=== PATIENT | male | born 1955 | race Caucasian/White ===

== ENCOUNTER → 2017-12-18 06:54 | Outpatient (CLI) | payer BC, SELFPAY ==
[2017-12-18 09:16] LABS: Anion Gap 12.2 mEq/L (5-15); Blood Urea Nitrogen 20 mg/dL (7-18); Carbon Dioxide 29 mmol/L (21.0-32.0); Chloride 109 mmol/L (98-107); Chol/HDL Ratio 2.8 (1-3.5); Cholesterol 86 mg/dL (140-200); Creatinine,Serum 1.05 mg/dL (0.70-1.30); Estimated Glomerular Filt Rate 72 ml/min (>60); GFR (African American) 87 ML/MIN (>60); Glucose 106 mg/dL (74-106); HDL Cholesterol 31 mg/dL (27-67); LDL Cholesterol 38 mg/dL (0-130); Potassium 4.2 mmoL/L (3.5-5.1); Sodium 146 mmol/L (136-145); Triglycerides 85 mg/dL (30-200); VLDL Cholesterol 17 mg/dL (0-40)
== END ==
PROVIDERS: PCP Family Medicine; Visit Provider Family Medicine
DX: I25.10 Atherosclerotic heart disease of native coronary artery without angina pectoris (principal); I10 Essential (primary) hypertension
CPT/HCPCS: 36415; 80048; 80061

== ENCOUNTER → 2018-05-07 07:30 | Outpatient (CLI) | payer BC, SELFPAY ==
[2018-05-07 08:11] LABS: Basophils # 0.1 K/mm3 (0-0.2); Basophils % 0.6 % (0.1-2.0); Eosinophils # 0.4 K/mm3 (0.0-0.4); Eosinophils % 4.3 % (0.1-12.0); Hematocrit 45.5 % (42.0-52.0); Lymphocytes # 2.9 K/mm3 (0.7-4.5); Lymphocytes % 33.8 % (10-50); Mean Corpuscular HGB Conc 32.9 g/dL (31.8-35.4); Mean Corpuscular Hemoglobin 31.1 pg (27.0-31.2); Mean Corpuscular Volume 94.8 fl (80-94); Mean Platelet Volume 7.6 fl (7.4-10.4); Monocytes # 0.5 K/mm3 (0.1-1.0); Monocytes % 5.4 % (1.7-9.3); Neutrophils # 4.8 K/mm3 (1.8-7.8); Neutrophils % 55.8 % (37.0-80.0); Platelet Count 316 K/mm3 (142-424); Red Cell Distribution Width 13.1 % (11.5-17.5); White Blood Count 8.6 K/mm3 (4.8-10.8)
[2018-05-07 08:46] LABS: Alanine Aminotransferase 34 U/L (12-78); Albumin Level 3.5 gm/dL (3.4-5.0); Alkaline Phosphatase 102 U/L (46-116); Anion Gap 9.1 mEq/L (5-15); Aspartate Amino Transferase 30 U/L (15-37); Bilirubin,Direct 0.1 mg/dL (0.0-0.2); Bilirubin,Indirect 0.3 mg/dL (0.0-0.9); Bilirubin,Total 0.4 mg/dL (0.2-1.0); Blood Urea Nitrogen 12 mg/dL (7-18); Calcium 9.2 mg/dL (8.5-10.1); Carbon Dioxide 32 mmol/L (21.0-32.0); Chloride 107 mmol/L (98-107); Chol/HDL Ratio 2.7 (1-3.5); Cholesterol 106 mg/dL (140-200); Creatinine,Serum 1.05 mg/dL (0.70-1.30); Estimated Glomerular Filt Rate 72 ml/min (>60); Free T4 (Free Thyroxine) 0.88 ng/dl (0.76-1.46); GFR (African American) 87 ML/MIN (>60); Glucose 102 mg/dL (74-106); HDL Cholesterol 39 mg/dL (27-67); LDL Cholesterol 51 mg/dL (0-130); Potassium 4.1 mmoL/L (3.5-5.1); Sodium 144 mmol/L (136-145); Thyroid Stimulating Hormone 2.85 uIU/ml (0.358-3.740); Total Protein,Serum 6.4 gm/dL (6.4-8.2); Triglycerides 79 mg/dL (30-200); VLDL Cholesterol 16 mg/dL (0-40)
== END ==
PROVIDERS: Visit Provider Family Medicine
DX: I25.10 Atherosclerotic heart disease of native coronary artery without angina pectoris (principal); I10 Essential (primary) hypertension; R63.4 Abnormal weight loss
CPT/HCPCS: 36415; 80048; 80061; 80076; 84439; 84443; 85025

== ENCOUNTER → 2018-05-15 07:39 | Outpatient (CLI) | payer BC, SELFPAY ==
--- NOTE | 2018-05-15 07:43 | CT_ITS ---
CT lung screening EXAM: CT LUNG LOW DOSE WO CONTRAST HISTORY: 30 pack-year smoking history, asymptomatic for lung cancer ITS.REASON: HX TOBACCO USE ORDERING PHYSICIAN: Eriberto Burnett MD PATIENT AGE: 62 years COMPARISON: None TECHNIQUE: The exam was performed on a GE Light Speed [address] scanner using 2.90 mGy CTDI. A low dose helical CT CHEST was performed on a multi-detector scanner. All CT scans at the facility use one or more dose reduction, viz: automated exposure control, ma/kV adjustment per patient size (including targeted exams where dose is matched to indication, i.e. head), or iterative reconstruction technique. The LDCT was performed in a facility that meets the criteria for the screening program. Data regarding this exam was submitted to ACR which is an approved registry. The order for this exam indicates that it came as a result of a lung cancer screening counseling shard decision-making visit that included all the elements required of such a visit including smoking cessation. The radiologist interpreting this exam meets the CMS criteria for the LDCT lung cancer screening program. The exam is reported using the Lung-RADS classification scale and reported to the ACR registry. NOTE: This study was performed for the specific purposes of lung cancer screening and is not an alternative to diagnostic chest CT. RADIATION DOSE: CTDI vol(CT dose Index-volume) = 2.90mG DLP (Dose Length Product) = 114.11 mGcm FINDINGS: There is hyperinflation with attenuation of the peripheral pulmonary vessels consistent with obstructive chronic bronchitis with scattered areas of scarring. No central lesions. No suspicious pulmonary nodules. Calcified granuloma is present in the right middle lobe medially Incidental coronary artery calcifications are noted IMPRESSION: 1. Lung RADS Category: 2, benign 2. Other findings: COPD, coronary artery calcifications RECOMMENDATIONS: 12 month LDCT follow-up
== END ==
PROVIDERS: PCP Family Medicine; Visit Provider Family Medicine
DX: Z12.2 Encounter for screening for malignant neoplasm of respiratory organs (principal); Z87.891 Personal history of nicotine dependence

== ENCOUNTER → 2019-04-29 14:10 | Outpatient (CLI) | payer BC, SELFPAY ==
[2019-04-29 14:45] LABS: Basophils % 0.2 % (0.1-2.0); Eosinophils # 0.2 K/mm3 (0.0-0.4); Eosinophils % 1.9 % (0.1-12.0); Hemoglobin 13.9 g/dL (14.1-18.0); Lymphocytes # 1.9 K/mm3 (0.7-4.5); Lymphocytes % 18.9 % (10-50); Mean Corpuscular HGB Conc 33.2 g/dL (31.8-35.4); Mean Corpuscular Hemoglobin 31.5 pg (27.0-31.2); Mean Platelet Volume 8.1 fl (7.4-10.4); Monocytes # 0.6 K/mm3 (0.1-1.0); Neutrophils # 7.4 K/mm3 (1.8-7.8); Neutrophils % 72.9 % (37.0-80.0); Platelet Count 284 K/mm3 (142-424); Red Blood Count 4.42 M/mm3 (4.60-6.20); Red Cell Distribution Width 13.2 % (11.5-17.5); White Blood Count 10.1 K/mm3 (4.8-10.8)
[2019-04-29 16:43] LABS: Chloride 105 mmol/L (98-107); Potassium 4.3 mmoL/L (3.5-5.1); Sodium 141 mmol/L (136-145)
[2019-04-29 16:45] LABS: Blood Urea Nitrogen 12 mg/dl (9-20); Estimated Glomerular Filt Rate 75 ml/min (>60); GFR (African American) 91 ML/MIN (>60)
[2019-04-29 16:46] LABS: Anion Gap 11.3 mEq/L (5-15); Calcium 9.6 mg/dl (8.4-10.2); Carbon Dioxide 29 mmol/L (22.0-30.0); Chol/HDL Ratio 2.4 (1-3.5); Cholesterol 83 mg/dl (140-200); Glucose 80 mg/dl (74-100); HDL Cholesterol 34 mg/dl (40-60); Iron 46 ug/dL (49-181); Triglycerides 60 mg/dl (30-150); VLDL Cholesterol 12 mg/dL (0-40)
[2019-04-29 16:57] LABS: Direct LDL Cholesterol 39.02 mg/dL (100-129)
== END ==
PROVIDERS: Visit Provider Family Medicine
DX: I25.10 Atherosclerotic heart disease of native coronary artery without angina pectoris (principal); I10 Essential (primary) hypertension; R53.83 Other fatigue
CPT/HCPCS: 36415; 80048; 80061; 83540; 85025

== ENCOUNTER → 2020-07-13 11:46 | Outpatient (CLI) | payer BC, SELFPAY ==
[2020-07-13 12:20] LABS: Basophils % 0.5 % (0.1-2.0); Eosinophils # 0.3 K/mm3 (0.0-0.4); Eosinophils % 2.7 % (0.1-12.0); Hematocrit 44.7 % (42.0-52.0); Hemoglobin 14.9 g/dL (14.1-18.0); Lymphocytes # 2.5 K/mm3 (0.7-4.5); Lymphocytes % 25.9 % (10-50); Mean Corpuscular HGB Conc 33.3 g/dL (31.8-35.4); Mean Corpuscular Hemoglobin 31.4 pg (27.0-31.2); Mean Corpuscular Volume 94.3 fl (80-94); Mean Platelet Volume 8.1 fl (7.4-10.4); Monocytes # 0.4 K/mm3 (0.1-1.0); Monocytes % 4.3 % (1.7-9.3); Neutrophils # 6.5 K/mm3 (1.8-7.8); Neutrophils % 66.7 % (37.0-80.0); Platelet Count 333 K/mm3 (142-424); Red Blood Count 4.74 M/mm3 (4.60-6.20); Red Cell Distribution Width 13.7 % (11.5-17.5); White Blood Count 9.7 K/mm3 (4.8-10.8)
[2020-07-13 12:32] LABS: Chloride 109 mmol/L (98-107); Sodium 140 mmol/L (136-145)
[2020-07-13 12:33] LABS: Potassium 4.1 mmoL/L (3.5-5.1)
[2020-07-13 12:35] LABS: Anion Gap 10.1 mEq/L (5-15); Blood Urea Nitrogen 14 mg/dl (9-20); Carbon Dioxide 25 mmol/L (22.0-30.0); Estimated Glomerular Filt Rate 85 ml/min (>60); GFR (African American) 102 ML/MIN (>60)
[2020-07-13 12:36] LABS: Calcium 9.7 mg/dl (8.4-10.2); Cholesterol 99 mg/dl (140-200); Glucose 113 mg/dl (74-100); HDL Cholesterol 35 mg/dl (40-60); Triglycerides 61 mg/dl (30-150); VLDL Cholesterol 12 mg/dL (0-40)
[2020-07-13 12:41] LABS: Chol/HDL Ratio 2.8 (1-3.5)
[2020-07-13 12:47] LABS: Direct LDL Cholesterol 49.77 mg/dL (100-129)
== END ==
PROVIDERS: Visit Provider Family Medicine
DX: I25.10 Atherosclerotic heart disease of native coronary artery without angina pectoris (principal); I10 Essential (primary) hypertension; R53.83 Other fatigue
CPT/HCPCS: 36415; 80048; 80061; 85025

== ENCOUNTER → 2020-11-04 12:42 | Outpatient (CLI) | payer OTHER, BC, SELFPAY ==
--- NOTE | 2020-11-04 12:50 | XR_ITS ---
PROCEDURE: XR SHOULDER LT MIN 2V CLINICAL INDICATION: LT SHOULDER INJURY,DECREASED ROM COMPARISON: No exams were available for comparison FINDINGS: No fracture or dislocation. No lytic or blastic change. There is normal mineralization. The joint spaces are well-preserved. No significant degenerative/arthritic changes. No erosive changes evident. Other findings:None. IMPRESSION: No acute findings. Dictated by: Pardeep Jackson MD 11/04/2020 13:02 Pardeep Jackson MD in [place] 11/04/2020 13:02
== END ==
PROVIDERS: PCP Family Medicine; Visit Provider Nurse Practitioner Family
DX: S49.92XA Unspecified injury of left shoulder and upper arm, initial encounter (principal); M25.612 Stiffness of left shoulder, not elsewhere classified
CPT/HCPCS: 73030

== ENCOUNTER → 2020-11-12 14:55 | Outpatient (CLI) | payer OTHER, SELFPAY ==
--- NOTE | 2020-11-12 15:02 | MR_ITS ---
PROCEDURE: MR SHOULDER LT WO CON CLINICAL INDICATION: DECREASED ROM OF LEFT COMPARISON: CR XR SHOULDER LT MIN 2V from 11/04/2020 TECHNIQUE: Routine multiplanar multi echo sequences are performed without gadolinium enhancement. FINDINGS: Hypertrophic changes are present involving the acromioclavicular joint with osteoarthritic change of the acromioclavicular joint. There is mild subacromial stenosis of 5 mm. There is mildly prominent thickening the supraspinatus tendon distally consistent with tendinopathy/tendinosis with an incomplete tear involving the supraspinatus tendon at its insertion upon the greater tuberosity. The infraspinatus, subscapularis, and teres minor tendons appear intact. There does appear to be a nondisplaced slap tear of the glenoid labrum. Increased T2 signal is present involving the humeral head laterally and at the greater tuberosity region as well as the central physis. The bicipital tendon is in place. Small amount fluid is present in the subcoracoid region. IMPRESSION: 1. Incomplete tear of the distal aspect of the supraspinatus tendon with tendinopathy/tendinosis of the supraspinatus tendon with mild subacromial stenosis and hypertrophic/arthritic change of the acromioclavicular joint. 2. Slap tear of the glenoid labrum 3. Bone marrow edema of the humeral head and physeal area and greater tuberosity which may be due to posttraumatic or inflammatory change. Dictated by: Pardeep Jackson MD 11/15/2020 14:32 Pardeep Jackson MD in [place] 11/15/2020 14:32
== END ==
PROVIDERS: PCP Nurse Practitioner Family; Visit Provider Nurse Practitioner Family
DX: S49.92XA Unspecified injury of left shoulder and upper arm, initial encounter (principal); M25.612 Stiffness of left shoulder, not elsewhere classified
CPT/HCPCS: 73221

== ENCOUNTER → 2021-01-30 14:02 | Outpatient (CLI) | payer BC, SELFPAY | PROVIDERS: PCP Family Medicine; Visit Provider Nurse Practitioner Family | DX: Z20.822 Contact with and (suspected) exposure to COVID-19 (principal) | CPT/HCPCS: C9803; U0003; U0005 ==

== ENCOUNTER 2021-03-20 14:25 | Emergency (ER) | payer BC, SELFPAY ==
[2021-03-20 16:45] VITALS: BP 0/0; PULSE 0; RESP 0; TEMP -17.7; TEMP 0
== END 2021-03-20 16:46 | disposition left against medical advice (07) ==
LOC: UTC 14:58
PROVIDERS: Emergency Provider Nurse Practitioner; PCP Family Medicine
DX: Z53.21 Procedure and treatment not carried out due to patient leaving prior to being seen by health care provider (principal)

== ENCOUNTER → 2021-03-21 10:35 | Outpatient (CLI) | payer BC, SELFPAY | PROVIDERS: Visit Provider Nurse Practitioner | DX: U07.1 COVID-19 (principal) | CPT/HCPCS: C9803; U0003; U0005 ==

== ENCOUNTER 2021-05-09 14:00 | Outpatient (RCR) | payer OTHER, SELFPAY | END 2021-05-09 14:05 | disposition home or self-care (01) | LOC: OT 14:00 | PROVIDERS: Visit Provider Orthopaedic Surgery | DX: S46.012A Strain of muscle(s) and tendon(s) of the rotator cuff of left shoulder, initial encounter (principal); M75.22 Bicipital tendinitis, left shoulder; M75.42 Impingement syndrome of left shoulder; M75.52 Bursitis of left shoulder; M25.512 Pain in left shoulder; M25.612 Stiffness of left shoulder, not elsewhere classified | CPT/HCPCS: 97010; 97014; 97035; 97110; 97140; 97164; 97166; 97530; G0283 ==

== ENCOUNTER → 2021-08-24 21:39 | Outpatient (CLI) | payer BC, SELFPAY | PROVIDERS: PCP Nurse Practitioner Family; Visit Provider Surgery | DX: Z01.812 Encounter for preprocedural laboratory examination (principal); Z20.822 Contact with and (suspected) exposure to COVID-19; Z13.810 Encounter for screening for upper gastrointestinal disorder; Z12.11 Encounter for screening for malignant neoplasm of colon; Z86.010 Personal history of colon polyps | CPT/HCPCS: C9803; U0003; U0005 ==

== ENCOUNTER 2021-08-26 06:32 | Day surgery (SDC) | payer BC, SELFPAY ==
[2021-08-19 14:53] VITALS: BMI 24.9
[2021-08-26] VITALS (7 sets, daily range): BP systolic 80–128; BP diastolic 44–71; PULSE 56–72; RESP 15–20; TEMP 36.4; O2SAT 93–98
--- NOTE | 2021-08-26 07:01 | HMH.ANESCL ---
[facility] Anesthesia Checklist - Patient Identification Patient Identification: Arm Band - Structural Data Admitted From: Home Planned Operative Procedure/s: EGD/Colonoscopy Consent for Planned Operative Procedure(s) Verified: Yes - Additional verifications Anesthesia Reactions: No Hx Blood Transfusions: No Blood Transfusion Reaction: No - Airway Assessment C-Spine Mobility Assessed: Yes TMJ Mobility Assessed: Yes Dentition: Edentulous - Neurological Assessment Level of Consciousness: Awake Hx Seizures: No Numbness or tingling in extremities: No - Anesthesia Plan Anesthesia Risk discussed: Yes Anesthesia Plan: Verified ASA Class: II Anesthesia Type: MAC [facility] History I have reviewed the patient's past medical history: Yes Medical History: Reports:: Anxiety, Coronary Artery Disease, Hyperlipidemia, Hypertension Denies:: Cancer, Diabetes Mellitus Type 1, Diabetes Mellitus Type 2, Internal Pacemaker, Lung Disease, MRSA, Seizures *Have you ever received a pneumonia vaccine?: Yes *Have you received a flu vaccine this season?: Yes Other Medical History: Denies: Blood Transfusion Reaction Anesthesia experience/problems:: None Other Surgeries: Yes: Colonoscopy. No: Pacemaker Amputation: No Fractures: No - *Social History Last grade of school completed: 7th or 8th Smoking Status: Current every day smoker Tobacco Type: cigarettes # Packs/Day (cigarettes): 1 #Yrs smoked (if former smoker): 39 Alcohol Intake: former Substance Use Type: denies use *Occupational Status:: employed Housing: house Household Members: spouse, family *Travel in the last 8 weeks: None - Psychiatric History Pschychiatric History:: Reports:: Anxiety Family Hx:: Cancer, Coronary Artery Disease, Hypertension
--- NOTE | 2021-08-26 07:08 | HMH.GSHP ---
HPI HPI: Patient is a 65-year-old male referred by Ellen Plaza for EGD and colonoscopy. Patient is somewhat of a poor historian. He states, I just get heartburn. This seems to be more of a substernal burning sensation. When asked about the duration of his symptoms he states it comes and goes . It is intermittent. When asked if he takes anything for this he states I may take something now. It appears as though he is on pantoprazole. It is unclear if he had a previous endoscopy. He does give a history consistent with possible upper GI in the past. He is apparently also referred for colonoscopy. When asked if the patient has had previous colonoscopy he states, I believe I have had 2 or 3 . Review of the record reveals that he had a colonoscopy in approximately 2011 in [place] which was reportedly unremarkable. He underwent colonoscopy December [address] Molina and had several polyps and 3-year colonoscopy was recommended. His follow-up colonoscopy was done by Dr. Molina 03/04/2019 and he had diminutive polyps recommended repeat in 5 years. [facility] History I have reviewed the patient's past medical history: Yes Medical History: Reports:: Anxiety, Coronary Artery Disease, Hyperlipidemia, Hypertension Denies:: Cancer, Diabetes Mellitus Type 1, Diabetes Mellitus Type 2, Internal Pacemaker, Lung Disease, MRSA, Seizures *Have you ever received a pneumonia vaccine?: Yes *Have you received a flu vaccine this season?: Yes Other Medical History: Denies: Blood Transfusion Reaction Other Surgeries: Yes: Colonoscopy. No: Pacemaker Amputation: No Fractures: No - *Social History Last grade of school completed: 7th or 8th Smoking Status: Current every day smoker Tobacco Type: cigarettes # Packs/Day (cigarettes): 1 #Yrs smoked (if former smoker): 39 Alcohol Intake: former Substance Use Type: denies use *Occupational Status:: employed Housing: house Household Members: spouse, family *Travel in the last 8 weeks: None - Psychiatric History Pschychiatric History:: Reports:: Anxiety Family Hx:: Cancer, Coronary Artery Disease, Hypertension Review of Systems - Review of Systems Review of systems:: pertinent systems reviewed and negative unless documented below Meds Home Medications Medication Instructions Recorded Confirmed Type ALPRAZolam [Alprazolam 0.25mg 0.25 mg PO BID 01/08/18 08/26/21 History Tab] Aspirin [Aspir 81] 81 mg PO DAILY 01/08/18 08/26/21 History Atorvastatin Calcium [Atorvastatin 80 mg PO DAILY 01/08/18 08/26/21 History 80mg Tab] Metoprolol Succinate [Toprol XL 50 mg PO DAILY 01/08/18 08/26/21 History 50mg Tablet] Prasugrel HCl [Effient 5mg Tab] 5 mg PO DAILY 01/08/18 08/26/21 History lisinopriL [Lisinopril 5mg Tablet] 5 mg PO DAILY 01/08/18 08/26/21 History pantoprazole 40 mg tablet,delayed 40 tab PO DAILY 06/16/21 08/26/21 History release Allergies Allergy/AdvReac Type Severity Reaction Status Date / Time penicillin G [PENICILLIN G] Allergy Mild Verified 08/19/21 14:52 Exam - Constitutional no acute distress - *Routine HEENT Exam Head: Present: normocephalic Eye: Present: EOMI, PERRL ENT: Present: mucous membranes moist - *Routine Neck Exam Present: supple. Absent: lymphadenopathy - *Routine Respiratory Exam Present: CTA bilaterally - *Routine Cardiovascular Exam Present: RRR - *Routine Abdominal Exam Present: soft, normoactive bowel sounds. Absent: tenderness - *Routine Rectal Exam Rectal:: deferred - *Routine Genitalia Exam Genitalia:: deferred - *Routine Extremities Exam Absent: cyanosis, clubbing, edema - *Routine Skin Exam Present: warm. Absent: rash - *Routine Neurological Exam Present: alert, oriented X3 Assessment and Plan - Assessment and plan all Dx Assessment and Plan for all problems:: Plan for EGD and colonoscopy
--- NOTE | 2021-08-26 08:21 | HMH.SCOPE ---
- Procedure: Date: 08/26/21 Patient Date of :: 1955 Procedure Performed:: Esophagogastroduodenoscopy with biopsies Total colonoscopy to terminal ileum with polypectomy using snare and biopsy forceps Indications:: Patient is a 65-year-old male referred by Ellen Plaza for EGD and colonoscopy. Patient is somewhat of a poor historian. He states, I just get heartburn. This seems to be more of a substernal burning sensation. When asked about the duration of his symptoms he states it comes and goes . It is intermittent. When asked if he takes anything for this he states I may take something now. It appears as though he is on pantoprazole. It is unclear if he had a previous endoscopy. He does give a history consistent with possible upper GI in the past. He is apparently also referred for colonoscopy. When asked if the patient has had previous colonoscopy he states, I believe I have had 2 or 3 . Review of the record reveals that he had a colonoscopy in approximately 2011 in [place] which was reportedly unremarkable. He underwent colonoscopy December [address] Molina and had several polyps and 3-year colonoscopy was recommended. His follow-up colonoscopy was done by Dr. Molina 03/04/2019 and he had diminutive polyps recommended repeat in 5 years. Of note, patient is on Effient. He had held his lisinopril for several days because he was under the impression that the lisinopril was his anticoagulant as opposed to his Effient and had maintained his Effient until a least a day or 2 prior to his colonoscopy. Performing Provider:: Romel Chery MD Referring Provider:: Ellen Plaza Sedation:: MAC sedation Procedure:: Patient was taken to the endoscopy procedure room. Positioned in lateral decubitus position. Adequate intravenous sedation was achieved. Olympus endoscope was inserted via the oropharynx. Esophagus was cannulated. There was some mild cricopharyngeal spasm. Gastroesophageal junction was encountered at 40 cm from the incisors. Stomach was cannulated and insufflated. Retroflexion revealed no evidence of any sliding hiatal hernia. There was some mild diffuse gastropathy. Limited biopsy was obtained of the gastric mucosa for histopathologic analysis. Pylorus was traversed. There was some very mild appearing duodenitis. This was not biopsied. Remainder of the duodenum was unremarkable. Limited biopsy was obtained at the gastroesophageal junction to evaluate for Pelaez's. Stomach was desufflated and the scope was withdrawn. Attention was then turned to colonoscopy. Digital examination was performed which revealed diminished sphincter tone. Variable stiffness Olympus colonoscope was inserted via the anus. Is advanced to the cecum. Colonic preparation was good. Ileocecal valve and appendiceal orifice were clearly identified. Colonoscope was advanced a short distance into the terminal ileum which appeared grossly normal. In the ascending colon there was a small adenomatous appearing polyp removed with cold cold snare. Residual polyp removed with biopsy forceps. Initially this polyp was unable to be retrieved and required repeated reinsertion withdrawal as well as irrigation through the colonoscope ultimately for retrieval. A small polyp was noted in the region of the proximal transverse colon which was removed with cold cutting snare. These 2 polyps were sent as right colon polyps as it was difficult to differentiated which originated from which site. In the descending colon there were a couple of tiny hyperplastic appearing polyps removed with cold biopsy forceps. There were a few scattered sigmoid diverticuli. At the rectosigmoid region there were a couple of hyperplastic appearing polyps removed with cold biopsy forceps. Retroflexion within the rectum revealed no evidence of any pathologic internal hemorrhoids. Colonoscope was withdrawn. Findings:: Mild cricopharyngeal spasm Gastr
== END 2021-08-26 09:19 | disposition home or self-care (01) ==
LOC: OUTP 06:34
PROVIDERS: PCP Nurse Practitioner Family; Visit Provider Surgery
PROC: 0DJ08ZZ Inspection of Upper Intestinal Tract, Via Natural or Artificial Opening Endoscopic (ICD-10-PCS; CPT 43235; principal; 2021-08-26 07:30)
DX: K63.5 Polyp of colon (principal); Z86.010 Personal history of colon polyps; K21.9 Gastro-esophageal reflux disease without esophagitis; F41.9 Anxiety disorder, unspecified; E78.5 Hyperlipidemia, unspecified; I10 Essential (primary) hypertension; I25.10 Atherosclerotic heart disease of native coronary artery without angina pectoris; Z72.0 Tobacco use; Z79.84 Long term (current) use of oral hypoglycemic drugs; Z79.899 Other long term (current) drug therapy
CPT/HCPCS: 43239; 45380; J2704

== ENCOUNTER 2022-02-15 17:26 | Observation (INO) | payer BC, MEDICARE, SELFPAY ==
[2022-02-15] VITALS (14 sets, daily range): BP systolic 108–190; BP diastolic 57–89; PULSE 57–101; RESP 12–18; TEMP 36.6–36.8; O2SAT 92–99; BMI 23.1
--- NOTE | 2022-02-15 17:23 | ECG_ITS ---
APPROVED REPORT Exam: Resting ECG HR:96 bpm ECG Measurements Heart Rate 96 AXES ME 171 P 80 QRSd 135 QRS 11 QT 360 T 73 QTc 414 Conclusion SINUS RHYTHM WITH OCCASIONAL VENTRICULAR PREMATURE COMPLEXES LEFT BUNDLE BRANCH BLOCK [120+ ms QRS DURATION, 80+ ms Q/S IN V1/V2, 85+ ms R IN I/aVL/V5/V6] ABNORMAL ECG UNCONFIRMED REPORT Electronically signed by : Eriberto Eaton MD 02/16/2022 20:19:53
--- NOTE | 2022-02-15 17:32 | HMH.EDGENADL ---
Discharge Plan Disposition Patient Disposition: Admitted as Observation Condition: Good Clinical Impressions Clinical Impression: Unstable angina pectoris Discharge ED Provider: Surinder Sidhu General Adult HPI General Chief complaint: Chest Pain Stated complaint: chest pain Time Seen by Provider: 02/15/22 17:26 History of Present Illness HPI narrative: Patient states that he has heartburn , a discomfort in his lower sternal area which she has had all day. However after arrival here it is almost completely gone, currently 03/07. Denies associated shortness of breath, nausea, diaphoresis, or radiation. He does have a history of heartburn and takes pantoprazole, but this does not feel like his usual heartburn. It feels more like his previous heart attack. Says that it feels like when he had his previous heart attack in 2012, says he was treated here and then sent to [place]. He says he did not receive a stent or bypass surgery. He says he still has a blockage. He sees Dr. Mendoza, cardiology. He is a smoker. He has hypertension. He does not have diabetes. Related Data Home Medications Medication Instructions Recorded Confirmed alprazolam 0.25 mg tablet 0.25 mg PO BID Anxiety 01/08/18 02/15/22 aspirin 81 mg tablet,delayed 81 mg PO DAILY Supplement 01/08/18 02/15/22 release atorvastatin 80 mg tablet 80 mg PO DAILY Cholesterol 01/08/18 02/15/22 lisinopril 5 mg tablet 5 mg PO DAILY bp 01/08/18 02/15/22 metoprolol succinate 50 mg 25 mg PO DAILY bp 01/08/18 02/15/22 tablet,extended release 24 hr prasugrel 5 mg tablet 5 mg PO DAILY Blood thinner 01/08/18 02/15/22 pantoprazole 40 mg tablet,delayed 40 tab PO DAILY Heartburn 06/16/21 02/15/22 release Allergies Allergy/AdvReac Type Severity Reaction Status Date / Time penicillin G [PENICILLIN G] Allergy Mild Verified 09/22/21 09:32 [facility] Disclaimer: The information contained in this section may have been updated after the patient was seen, as this information can be updated by other users. 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 current occupational exposures/hazards: No caffeine: Yes ROS Obtained: Yes Systems reviewed as appropriate & no additional complaints except as documented Constitutional Constitutional: Denies fever(s), Denies headache(s) and Denies weakness ENT Ears, Nose, Mouth, and Throat: Denies headache(s), Denies nasal discharge and Denies sore throat Cardiovascular Cardiovascular: Reports chest pain, Denies diaphoresis and Denies radiating jaw, neck or arm pain Respiratory Respiratory: Denies shortness of breath and Denies cough Gastrointestinal Gastrointestingal: Denies abdominal pain, constipation, diarrhea, nausea or vomiting Genitourinary Male Genitourinary: Denies difficulty urinating and Denies flank pain Musculoskeletal Musculoskeletal: Denies numbness Neurologic Neurologic: Denies headache(s), Denies numbness and Denies weakness Physical Exam General General appearance: alert and in no apparent distress Head Head exam: atraumatic and normocephalic Eye Eye exam: Present normal appearance and EOMI ENT ENT exam: Present mucous membranes moist Neck Neck exam: Present normal inspection and trachea midline Chest Chest inspection: Present normal inspection and symmetric chest wall rise Respiratory Respiratory exam: Present normal lung sounds bilaterally; Absent respiratory distress Cardiovascular Cardiovascular exam: Present regular rate, normal rhythm and normal heart sounds Abdominal Exam Abdominal exam: Present soft and normal bowel sounds; Absent distention, tenderness, guarding, rebound or rigidity Extremities Exam Extremit
--- NOTE | 2022-02-15 17:34 | PC.NURSE ---
at bedside when pt arrived to assess. speaking with Dr. Rowe at this time
--- NOTE | 2022-02-15 17:36 | XR_ITS ---
PROCEDURE INFORMATION: Exam: XR Chest Exam date and time: 02/15/2022 5:52 PM Age: 66 years old Clinical indication: Pain; Chest pressure; Additional info: Chest pain TECHNIQUE: Imaging protocol: Radiologic exam of the chest. Views: 1 view. COMPARISON: LUNGSCREEN CT lung screening 05/15/2018 8:11 AM FINDINGS: Lungs: No lobar consolidation, pleural effusion or pulmonary edema. Pleural spaces: See Lungs finding. Heart/Mediastinum: Unremarkable. No cardiomegaly. Bones/joints: Unremarkable. IMPRESSION: No lobar consolidation, pleural effusion or pulmonary edema.
[2022-02-15 17:47] LABS: Coronavirus 19, PCR Not Detected (NotDetected); Influenza A, PCR Not Detected (NotDetected); Influenza B, PCR Not Detected (NotDetected)
--- NOTE | 2022-02-15 17:49 | PC.NURSE ---
Spoke with Kandy from [facility]. Confirmed heparin bolus and drip. She advised she would enter both on the MAR
[2022-02-15 18:00] LABS: Basophils # 0.1 K/mm3 (0-0.2); Basophils % 0.9 % (0.1-2.0); Eosinophils # 0.3 K/mm3 (0.0-0.4); Eosinophils % 3.1 % (0.1-12.0); Hematocrit 48.3 % (42.0-52.0); Hemoglobin 15.3 g/dL (14.1-18.0); Lymphocytes # 2.9 K/mm3 (0.7-4.5); Lymphocytes % 27.2 % (10-50); Mean Corpuscular HGB Conc 31.7 g/dL (31.8-35.4); Mean Corpuscular Hemoglobin 31.2 pg (27.0-31.2); Mean Corpuscular Volume 98.5 fl (80-94); Mean Platelet Volume 8.7 fl (7.4-10.4); Monocytes # 0.4 K/mm3 (0.1-1.0); Neutrophils # 6.8 K/mm3 (1.8-7.8); Neutrophils % 64.7 % (37.0-80.0); Platelet Count 378 K/mm3 (142-424); Red Blood Count 4.91 M/mm3 (4.60-6.20); Red Cell Distribution Width 13.4 % (11.5-17.5); White Blood Count 10.5 K/mm3 (4.8-10.8)
[2022-02-15 18:03] LABS: Chloride 107 mmol/L (98-107); Potassium 3.9 mmoL/L (3.5-5.1); Sodium 143 mmol/L (136-145)
[2022-02-15 18:06] LABS: Alanine Aminotransferase 27 U/L (12-78); Albumin Level 4.3 g/dl (3.5-5.0); Albumin/Globulin Ratio 1.6 (1.1-1.8); Alkaline Phosphatase 126 U/L (38-126); Anion Gap 10.9 mEq/L (5-15); Aspartate Amino Transferase 47 U/L (17-59); Bilirubin,Total 0.4 mg/dl (0.2-1.3); Blood Urea Nitrogen 16 mg/dl (9-20); Carbon Dioxide 29 mmol/L (22.0-30.0); Creatinine Clearance Estimated 63 mL/min (50-200); Estimated Glomerular Filt Rate 84 ml/min (>60); GFR (African American) 102 ML/MIN (>60); Globulin 2.7 g/dL (1.3-3.2)
[2022-02-15 18:07] LABS: Glucose 121 mg/dl (74-100)
[2022-02-15 18:20] LABS: Activated Partial Thrombo Time 24.1 seconds (22.8-30.6); Prothrombin Time 10.8 seconds (10.1-12.5)
[2022-02-15 18:23] LABS: Troponin I < 0.01 ng/ml (0.00-0.034)
--- NOTE | 2022-02-15 18:42 | PC.NURSE ---
talking with hospitalist
--- NOTE | 2022-02-15 19:02 | PC.NURSE ---
rounded on pt at this time. Pt has no new needs
--- NOTE | 2022-02-15 19:12 | PC.NURSE ---
HS aware of admission
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
[2022-02-15 21:10] LABS: Cholesterol 106 mg/dl (140-200); HDL Cholesterol 35 mg/dl (40-60); Triglycerides 42 mg/dl (30-150); VLDL Cholesterol 8 mg/dL (0-40)
[2022-02-15 21:22] LABS: Direct LDL Cholesterol 54.59 mg/dL (100-129)
[2022-02-15 21:36] LABS: Troponin I < 0.01 ng/ml (0.00-0.034)
[2022-02-15 21:42] LABS: Thyroid Stimulating Hormone 1.17 uIU/mL (0.465-4.68)
[2022-02-15 23:04] LABS: Hemoglobin A1C 5.8 % (4.0-6.0)
[2022-02-16] VITALS (26 sets, daily range): BP systolic 95–134; BP diastolic 51–89; PULSE 47–93; RESP 11–20; TEMP 36.6–36.8; O2SAT 90–99; BMI 22.1; BMI 22.0
[2022-02-16 00:22] LABS: PTT Heparin (inpatient only) 39.1 Seconds (23.6-34.0)
[2022-02-16 00:22] LABS: Troponin I < 0.01 ng/ml (0.00-0.034)
--- NOTE | 2022-02-16 00:58 | PC.NURSE ---
0034 ptt results were called to pharmacy [facility] per tyler barahona rn, orders entered per pharmacist for heparin bolus and adjust drip to 900 units/hr, recheck ptt at 0600
--- NOTE | 2022-02-16 01:46 | PC.NURSE ---
AUDIT [facility] hospitalist Harika called regarding b/p trending down and last b/p 99/59 with map 72, pt denies chest pain, no other issues noted at this time, verbal order received to stop nitroglycerin drip and give 500cc bolus of normal saline repeated and verified.
--- NOTE | 2022-02-16 05:49 | PC.NURSE ---
pt rested well through the night, v/s remain stable, telemetry reveals sinus to sinus afsaneh with pulse rate as low as 49 at times, skin pwd without edema, pt is alert and oriented x4, pt denies chest pain, pt complains of pain left shoulder s/p shoulder surgery in November this year, pt remains npo for cardiology consult.
--- NOTE | 2022-02-16 06:45 | ECG_ITS ---
APPROVED REPORT Exam: Resting ECG HR:52 bpm ECG Measurements Heart Rate 52 AXES CA 172 P 79 QRSd 146 QRS 52 QT 466 T -32 QTc 446 Conclusion SINUS BRADYCARDIA LEFT BUNDLE BRANCH BLOCK [120+ ms QRS DURATION, 80+ ms Q/S IN V1/V2, 85+ ms R IN I/aVL/V5/V6] ABNORMAL ECG UNCONFIRMED REPORT Electronically signed by : Eriberto Eaton MD 02/16/2022 20:18:55
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
[2022-02-16 07:42] LABS: PTT Heparin (inpatient only) 96.5 Seconds (23.6-34.0)
--- NOTE | 2022-02-16 07:54 | P.CONPHA_ITS ---
[facility] Pharmacy Heparin Dosing Demographic Data Admission date:: 02/15/22 Date: 02/16/22 Time: 07:54 Allergies Allergy/AdvReac Type Severity Reaction Status Date / Time penicillin G [PENICILLIN G] Allergy Mild Verified 09/22/21 09:32 Height: 1.63 m Weight: 58.513 kg Indication Medication therapy:: Heparin Current Indications:: ACS/LOW DOSE PROTOCOL Current Active Problems (Updated 02/16/22 @ 07:37 by SANDRA Mckinnon) Hyperlipidemia (Acute) Unstable angina pectoris (Acute) Hypertension (Acute) CAD (coronary artery disease) (Acute) Tobacco abuse (Acute) CVA?: No Bleeding problem?: No Kidney disease?: No SD?: Yes Desired PTT range:: 50-75 seconds Labs Anticoagulation Lab Results:: 02/15/22 17:25 Hgb 15.3 Hct 48.3 Plt Count 378 Monitoring Dose Monitor 1: Date: 02/15/22 Time: 17:56 PTT Result:: 24.1 SECONDS Infusion Rate:: START HEPARIN DRIP AT 700 UNITS/HOUR = 14 ML/HOUR AND BOLUS 3500 UNITS OF HEPARIN IV ONCE. Dose Monitor 2: Date: 02/16/22 Time: 00:00 PTT Result:: 39.1 SECONDS Infusion Rate:: INCREASE HEPARIN DRIP RATE TO 900 UNITS/HOUR = 18 ML/HOUR Dose Monitor 3: Date: 02/16/22 Time: 06:56 PTT Result:: 96.5 SECONDS Infusion Rate:: DECREASE HEPARIN DRIP RATE TO 700 UNITS/HOUR = 14 ML/HOUR Dose Monitor 4: Date: 02/16/22 Time: 09:00 PTT Result:: 64.3 SECONDS Infusion Rate:: CONTINUE CURRENT RATE OF 700 UNITS/HOUR = 14 ML/HOUR Comment:: HEPARIN DRIP STOPPED AFTER PATIENT RETURNED FROM PERFORMANCE IMPROVEMENT COORDINATOR. Core Measures Is INR > or = 2 at discharge?: No Most Recent Labs:: Laboratory Results - last 24 hr 02/15/22 17:25: WBC 10.5, RBC 4.91, Hgb 15.3, Hct 48.3, MCV 98.5 H, MCH 31.2, MCHC 31.7 L, RDW 13.4, Plt Count 378, MPV 8.7, Neut % (Auto) 64.7, Lymph % (Auto) 27.2, Humphreys % (Auto) 4.0, Eos % (Auto) 3.1, Baso % (Auto) 0.9, Neut # (Auto) 6.8, Lymph # (Auto) 2.9, Humphreys # (Auto) 0.4, Eos # (Auto) 0.3, Baso # (Auto) 0.1 02/15/22 17:25: Sodium 143, Potassium 3.9, Chloride 107, Carbon Dioxide 29, Anion Gap 10.9, BUN 16, Creatinine 0.90, Estimated Creat Clear 63, Estimated GFR 84, Est GFR ( Amer) 102, Glucose 121 H, Calcium 10.0, Total Bilirubin 0.4, AST 47, ALT 27, Alkaline Phosphatase 126, Troponin I < 0.01, Total Protein 7.0, Albumin 4.3, Globulin 2.7, Albumin/Globulin Ratio 1.6 02/15/22 17:36: SARS-CoV-2 (PCR) Not detected, Influenza A Untype (PCR) Not detected, Influenza Type B (PCR) Not detected 02/15/22 17:56: PT 10.8, INR 1.00, APTT 24.1 02/15/22 20:42: Troponin I < 0.01 02/15/22 20:42: Hemoglobin A1c 5.8 02/15/22 20:42: Triglycerides 42, Cholesterol 106 L, LDL Cholesterol Direct 54.59 L, VLDL Cholesterol 8, HDL Cholesterol 35 L, Cholesterol/HDL Ratio 3.0, TSH 1.17 02/15/22 23:44: Troponin I < 0.01 02/16/22 00:00: APTT 39.1 H 02/16/22 06:56: APTT 96.5 H* Were Heparin and Warfarin started on the same day?: No
[2022-02-16 08:41] LABS: Chloride 110 mmol/L (98-107)
[2022-02-16 08:42] LABS: Potassium 3.8 mmoL/L (3.5-5.1); Sodium 141 mmol/L (136-145)
[2022-02-16 08:44] LABS: Alanine Aminotransferase 20 U/L (12-78); Alkaline Phosphatase 110 U/L (38-126); Aspartate Amino Transferase 42 U/L (17-59); Bilirubin,Total 0.4 mg/dl (0.2-1.3); Blood Urea Nitrogen 14 mg/dl (9-20); Creatinine Clearance Estimated 60 mL/min (50-200); Estimated Glomerular Filt Rate 84 ml/min (>60); GFR (African American) 102 ML/MIN (>60)
[2022-02-16 08:45] LABS: Albumin Level 3.5 g/dl (3.5-5.0); Albumin/Globulin Ratio 1.5 (1.1-1.8); Anion Gap 9.8 mEq/L (5-15); Calcium 9.4 mg/dl (8.4-10.2); Carbon Dioxide 25 mmol/L (22.0-30.0); Globulin 2.4 g/dL (1.3-3.2); Glucose 93 mg/dl (74-100); Total Protein,Serum 5.9 g/dl (6.3-8.2)
[2022-02-16 09:06] LABS: Troponin I < 0.01 ng/ml (0.00-0.034)
[2022-02-16 09:32] LABS: Basophils # 0.1 K/mm3 (0-0.2); Basophils % 0.6 % (0.1-2.0); Eosinophils # 0.5 K/mm3 (0.0-0.4); Eosinophils % 4.9 % (0.1-12.0); Hematocrit 42.4 % (42.0-52.0); Hemoglobin 13.8 g/dL (14.1-18.0); Lymphocytes # 3.7 K/mm3 (0.7-4.5); Lymphocytes % 36.3 % (10-50); Mean Corpuscular HGB Conc 32.6 g/dL (31.8-35.4); Mean Corpuscular Hemoglobin 31.7 pg (27.0-31.2); Mean Corpuscular Volume 97.5 fl (80-94); Mean Platelet Volume 9.2 fl (7.4-10.4); Monocytes # 0.4 K/mm3 (0.1-1.0); Monocytes % 4.4 % (1.7-9.3); Neutrophils # 5.5 K/mm3 (1.8-7.8); Neutrophils % 53.9 % (37.0-80.0); Platelet Count 309 K/mm3 (142-424); Red Blood Count 4.35 M/mm3 (4.60-6.20); Red Cell Distribution Width 13.6 % (11.5-17.5); White Blood Count 10.1 K/mm3 (4.8-10.8)
[2022-02-16 10:46] LABS: PTT Heparin (inpatient only) 64.3 Seconds (23.6-34.0)
--- NOTE | 2022-02-16 10:57 | IR_ITS ---
APPROVED REPORT Patient Location: Inpatient Audiovisual Librarian: WALT Juarez RT (R) PROCEDURES Left heart catheterization Left ventriculogram Selective coronary angiogram INDICATION Unstable angina, Left bundle branch block on EKG with abnormal concordant T waves, Known coronary artery disease, Elevated NAOMI score Informed consent was obtained prior to the procedure. COMPLICATIONS None Estimated Blood Loss: Less than 10 mls TECHNIQUE One percent lidocaine used to anesthetize the right anterior aspect of the wrist. The right radial artery was accessed via the Seldinger technique. A 6 [place] sheath was placed in the right radial artery. 2.5 mg of verapamil, 800 mcg of nitroglycerin, 1mg Lidocaine and 5000 U Heparin were given through the arterial sheath. The papa catheter was also used to perform left heart catheterization, left ventriculogram and selective coronary angiogram. At the end of the procedure the sheath was removed good hemostasis was achieved using Traclet band, patient was transferred to the postop holding area in stable condition. ANGIOGRAPHIC RESULTS The left main artery Has a distal eccentric 10% stenosis The left anterior descending artery Proximally normal with mid vessel 20 to 30% stenosis. A large 3 mm first diagonal artery has an ostial 80% stenosis The circumflex artery Gives rise to a moderate sized ramus intermedius which is widely patent. There is additional 30% stenosis in the terminal obtuse marginal artery The right coronary artery Is dominant and has proximal 20 to 30% stenosis with NAOMI II flow throughout the posterior descending artery The RUIZ ventriculogram reveals Slightly dilated ventricle with mild anteroapical hypokinesis estimate ejection fraction 50% The left ventricular end-diastolic pressure 10 mmHg IMPRESSION Coronary disease as described above most notably severe stenosis and a 3 mm diagonal artery which is best managed medically at this time Slight LV dyssynchrony secondary to left bundle branch block Ejection fraction 50% Normal left ventricular end-diastolic pressure PLAN 1. Medical management for coronary artery disease. At this time I favor medical management on the large first diagonal artery. Any percutaneous attempt at revascularizing the diagonal artery would require bifurcating stent into an otherwise mildly diseased widely patent LAD, which would not be ideal. Typically ostial diagonal artery disease responds favorably to medical management 2. Maximize antianginal medications 3. LDL less than 55 to be achieved with high intensity statin 4. Avoidance of tobacco products 5. Risk factor modification 6. Cardiac rehabilitation Electronically signed by : Zachariah Rowe MD 02/16/2022 12:30:29
--- NOTE | 2022-02-16 17:09 | PC.NURSE ---
PT IS RESTING IN BED WITH FAMILY AT BEDSIDE. ALERT AND ORIENTED X4. CATH VSS. NSR WITH BBB ON TELEMETRY. LUNG SOUNDS CLEAR. ABDOMEN SOFT/NON TENDER WITH ACTIVE BOWEL SOUNDS. PT HAS BEEN USING URINAL TO VOID. EATING AND DRINKING WELL. NO COMPLAINTS OF CHEST PAIN OR SOA. WILL CONTINUE TO MONITOR.
--- NOTE | 2022-02-16 21:48 | PC.NURSE ---
molly ramirez aprn called to ask about administering coreg as pt hr 57 and lowest has been 47, telephone order given to hold pm dose of coreg, repeated and verified.
[2022-02-17] VITALS: BP 117/53; PULSE 57; PULSE 65; RESP 18; TEMP 36.9; O2SAT 97
[2022-02-17 04:00] VITALS: BP 103/49; PULSE 57; PULSE 60; RESP 16; TEMP 36.4; O2SAT 94; BMI 22.7
--- NOTE | 2022-02-17 06:21 | PC.NURSE ---
Addendum entered by Veronika Cervantes RN 02/17/22 06:27: telemetry reveals nsr with bbb and prolonged qt. Original Note: pt slept most of night, no complaints of chest pain, dressing to right wrist cdi, vss, no other issues or concerns noted at this time.
[2022-02-17 07:05] LABS: Basophils # 0.1 K/mm3 (0-0.2); Basophils % 0.6 % (0.1-2.0); Eosinophils # 0.4 K/mm3 (0.0-0.4); Eosinophils % 4.2 % (0.1-12.0); Hemoglobin 13.6 g/dL (14.1-18.0); Lymphocytes # 3.2 K/mm3 (0.7-4.5); Lymphocytes % 33.9 % (10-50); Mean Corpuscular HGB Conc 33.3 g/dL (31.8-35.4); Mean Corpuscular Hemoglobin 31.9 pg (27.0-31.2); Mean Corpuscular Volume 96.1 fl (80-94); Mean Platelet Volume 8.7 fl (7.4-10.4); Monocytes # 0.6 K/mm3 (0.1-1.0); Neutrophils # 5.2 K/mm3 (1.8-7.8); Neutrophils % 55.4 % (37.0-80.0); Platelet Count 293 K/mm3 (142-424); Red Blood Count 4.27 M/mm3 (4.60-6.20); Red Cell Distribution Width 13.5 % (11.5-17.5); White Blood Count 9.4 K/mm3 (4.8-10.8)
[2022-02-17 07:18] LABS: Chloride 109 mmol/L (98-107); Potassium 3.7 mmoL/L (3.5-5.1); Sodium 140 mmol/L (136-145)
[2022-02-17 07:21] LABS: Alanine Aminotransferase 20 U/L (12-78); Albumin Level 3.5 g/dl (3.5-5.0); Albumin/Globulin Ratio 1.5 (1.1-1.8); Alkaline Phosphatase 102 U/L (38-126); Anion Gap 7.7 mEq/L (5-15); Aspartate Amino Transferase 35 U/L (17-59); Bilirubin,Total 0.5 mg/dl (0.2-1.3); Blood Urea Nitrogen 14 mg/dl (9-20); Carbon Dioxide 27 mmol/L (22.0-30.0); Creatinine Clearance Estimated 62 mL/min (50-200); Estimated Glomerular Filt Rate 75 ml/min (>60); GFR (African American) 90 ML/MIN (>60); Globulin 2.3 g/dL (1.3-3.2); Total Protein,Serum 5.8 g/dl (6.3-8.2)
[2022-02-17 07:22] LABS: Calcium 9.3 mg/dl (8.4-10.2); Glucose 87 mg/dl (74-100)
[2022-02-17 08:00] VITALS: PULSE 68
[2022-02-17 08:53] VITALS: BP 121/55; PULSE 61; RESP 18; TEMP 36.9; O2SAT 96
--- NOTE | 2022-02-17 10:51 | EXP.DC.SUM ---
General Admission date:: 02/15/22 Discharge date: 02/17/22 HPI HPI HPI: This is a 66-year-old male with past medical history of tobacco abuse, coronary artery disease, hypertension who presents emergency department today with complaints of substernal chest pain. He reports substernal/epigastric pain that started this morning. He describes the pain as a discomfort more than a pain. He reports a burning and aching sensation. He does endorse history of acid reflux as well and states that this is more severe than his typical goal acid reflux episodes. He does endorse prior [place] in 2012 and that describes this pain as being similar to the pain he experienced then. He reportedly at that time was sent to [place] and is under the care of computer systems integrator Dr. Mendoza. He denies having any cardiac stents or open heart surgery at that time. He was medically managed with beta-jennifer, aspirin and statin. Today he denies palpitations, diaphoresis and reports at the time of his presentation to the emergency department a pain of 1 out of 10. Emergency department work-up mostly unremarkable. All labs within normal limits. Given patient's history, cardiology was consulted and recommends n.p.o. at midnight for cath in a.m. He was placed on heparin drip, nitro drip, received beta-jennifer and aspirin admitted to the hospital service for further evaluation management Hospital Course Hospital Course Hospital Course: Patient presented to the ER early evening of 02/15 for chest pain. Given his history of [place] in 2012 patient was taken to the [facility] on 02/16 where left heart cath showed 80% stenosis of a diagonal artery branch off the LAD, with medical management recommended. Patient was kept overnight to monitor from bleeding from the site of artery access. He reports dull chest pain has continued, its worse with laying down and seems to sort of come and go at times randomly, and at times worse with eating and better with Carafate. Exam Data for Last 24 hours Vital signs and Labs for Last 24 Hours: Temp Pulse Resp BP Pulse Ox 98.5 F 61 18 121/55 L 96 02/17/22 08:53 02/17/22 08:53 02/17/22 08:53 02/17/22 08:53 02/17/22 08:53 Laboratory Results - last 24 hr 02/17/22 06:33: WBC 9.4, RBC 4.27 L, Hgb 13.6 L, Hct 41.0 L, MCV 96.1 H, MCH 31.9 H, MCHC 33.3, RDW 13.5, Plt Count 293, MPV 8.7, Neut % (Auto) 55.4, Lymph % (Auto) 33.9, Cotton % (Auto) 6.0, Eos % (Auto) 4.2, Baso % (Auto) 0.6, Neut # (Auto) 5.2, Lymph # (Auto) 3.2, Cotton # (Auto) 0.6, Eos # (Auto) 0.4, Baso # (Auto) 0.1 02/17/22 06:33: Sodium 140, Potassium 3.7, Chloride 109 H, Carbon Dioxide 27, Anion Gap 7.7, BUN 14, Creatinine 1.00, Estimated Creat Clear 62, Estimated GFR 75, Est GFR ( Amer) 90, Glucose 87, Calcium 9.3, Total Bilirubin 0.5, AST 35, ALT 20, Alkaline Phosphatase 102, Total Protein 5.8 L, Albumin 3.5, Globulin 2.3, Albumin/Globulin Ratio 1.5 I & O for Last 24 hours: Intake & Output 02/14/22 02/15/22 02/16/22 02/17/22 23:59 23:59 23:59 23:59 Intake Total 1268 / 1268 480 / 480 Output Total 120 / 120 875 / 875 0 / 0 Balance -120 / -120 393 / 393 480 / 480 Weight 61.235 kg 58.51 kg 60.47 kg Constitutional Constitutional: no acute distress, average body habitus and cooperative *Routine HEENT Exam Head: Present normocephalic and atraumatic Eye: Present EOMI and PERRL ENT: Present mucous membranes moist and oropharynx clear *Routine Neck Exam Neck: Present supple and full ROM *Routine Respiratory Exam Respiratory: Present CTA bilaterally; Absent accessory muscle use or respiratory distress *Routine Cardiovascular Exam Cardiovascular: Present RRR, Normal S1 and Normal S2; Absent murmur *Routine Abdominal Exam Abdominal: Present soft and normoactive bowel sounds; Absent tenderness, distended, rebound or guarding *Routine Extremities Exam Extremities: Present full ROM, pulses intact and normal capillary refill; Absent edema or tenderness *Routine Neurological Exam
[2022-02-17 11:39] VITALS: BP 127/69; PULSE 65; RESP 20; TEMP 37.1; O2SAT 94
--- NOTE | 2022-02-21 14:29 | CARE MANAGER ---
Spoke with patient for post-discharge phone interview, patient is doing well and has no issues at this time.
== END 2022-02-17 12:20 | disposition home or self-care (01) ==
LOC: ER 18:50 → ICU 21:35 → 2ND 02-16 18:26
PROVIDERS: Internal Medicine; Nurse Practitioner Acute Care; Admitting Provider Emergency Medicine; Emergency Provider Emergency Medicine; PCP Nurse Practitioner Family; Visit Provider Emergency Medicine
DX: I25.110 Atherosclerotic heart disease of native coronary artery with unstable angina pectoris (principal); I10 Essential (primary) hypertension; E78.5 Hyperlipidemia, unspecified; K21.9 Gastro-esophageal reflux disease without esophagitis; F17.210 Nicotine dependence, cigarettes, uncomplicated; Z79.899 Other long term (current) drug therapy
CPT/HCPCS: 36415; 71045; 80053; 80061; 83036; 84443; 84484; 85025; 85610; 85730; 93005; 93458; 99152; 99285; C1725; C1769; C9803; G0378; J1644; Q9967; U0003; U0005

== ENCOUNTER 2022-08-19 12:32 | Emergency (ER) | payer BC, MEDICARE, SELFPAY ==
[2022-08-19] VITALS (11 sets, daily range): BP systolic 119–164; BP diastolic 55–75; PULSE 51–73; RESP 16; TEMP 36.7–37; O2SAT 95–100; BMI 24.7
--- NOTE | 2022-08-19 12:42 | ECG_ITS ---
APPROVED REPORT Exam: Resting ECG HR:67 bpm ECG Measurements Heart Rate 67 AXES NM 169 P 75 QRSd 145 QRS 38 QT 424 T -15 QTc 440 Conclusion SINUS RHYTHM LEFT BUNDLE BRANCH BLOCK [120+ ms QRS DURATION, 80+ ms Q/S IN V1/V2, 85+ ms R IN I/aVL/V5/V6] ABNORMAL ECG UNCONFIRMED REPORT Electronically signed by : Eriberto Eaton MD 08/22/2022 21:37:49
--- NOTE | 2022-08-19 13:00 | PC.NURSE ---
DR. CHAPMAN AT BEDSIDE
--- NOTE | 2022-08-19 13:10 | XR_ITS ---
PROCEDURE INFORMATION: Exam: XR Chest Exam date and time: 08/19/2022 1:20 PM Age: 67 years old Clinical indication: Other: Dizziness; Additional info: Dizziness, lbbb TECHNIQUE: Imaging protocol: Radiologic exam of the chest. Views: 1 view. COMPARISON: CR XR CHEST PORTABLE 02/15/2022 5:52 PM FINDINGS: Lungs: No acute airspace consolidation. No appreciable pulmonary edema. Pleural spaces: No pleural effusion. No pneumothorax. Heart/Mediastinum: Cardiomediastinal silouhette is within normal limits. Bones/joints: No evidence of acute osseous abnormality. IMPRESSION: No acute findings.
[2022-08-19 13:23] LABS: Basophils % 0.2 % (0.1-2.0); Blood Urea Nitrogen 13 mg/dl (9-20); Calcium 9.1 mg/dl (8.4-10.2); Carbon Dioxide 28 mmol/L (22.0-30.0); Chloride 107 mmol/L (98-107); Creatinine Clearance Estimated 66 mL/min (50-200); Eosinophils # 0.4 K/mm3 (0.0-0.4); Eosinophils % 3.1 % (0.1-12.0); Estimated Glomerular Filt Rate 75 ml/min (>60); GFR (African American) 90 ML/MIN (>60); Glucose 104 mg/dl (74-100); Hematocrit 46.2 % (42.0-52.0); Lymphocytes # 3.2 K/mm3 (0.7-4.5); Lymphocytes % 25.9 % (10-50); Mean Corpuscular HGB Conc 32.4 g/dL (31.8-35.4); Mean Corpuscular Hemoglobin 30.5 pg (27.0-31.2); Mean Corpuscular Volume 94.3 fl (80-94); Mean Platelet Volume 8.4 fl (7.4-10.4); Monocytes # 0.7 K/mm3 (0.1-1.0); Monocytes % 5.5 % (1.7-9.3); Neutrophils % 65.3 % (37.0-80.0); Platelet Count 320 K/mm3 (142-424); Red Cell Distribution Width 13.4 % (11.5-17.5); Sodium 145 mmol/L (136-145); White Blood Count 12.2 K/mm3 (4.8-10.8)
[2022-08-19 13:38] LABS: Troponin I < 0.01 ng/ml (0.00-0.034)
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
[2022-08-19 16:49] LABS: Troponin I < 0.01 ng/ml (0.00-0.034)
--- NOTE | 2022-08-19 16:50 | PC.NURSE ---
GAVE PT A SODA , AT BEDSIDE
== END 2022-08-19 17:05 | disposition home or self-care (01) ==
PROVIDERS: Emergency Provider Emergency Medicine; PCP Nurse Practitioner Family
DX: R42 Dizziness and giddiness (principal); F17.210 Nicotine dependence, cigarettes, uncomplicated; I25.10 Atherosclerotic heart disease of native coronary artery without angina pectoris; I73.89 Other specified peripheral vascular diseases; I10 Essential (primary) hypertension; E78.5 Hyperlipidemia, unspecified
CPT/HCPCS: 71045; 80048; 84484; 85025; 93005; 99283; 99284

== ENCOUNTER → 2022-08-22 12:07 | Outpatient (CLI) | payer BC, MEDICARE, SELFPAY | PROVIDERS: PCP Nurse Practitioner Family; Visit Provider Nurse Practitioner Family | DX: R42 Dizziness and giddiness (principal) | CPT/HCPCS: 93225; 93226 ==

== ENCOUNTER 2022-09-01 08:00 | Outpatient (RCR) | payer OTHER, SELFPAY | END 2022-09-01 08:05 | disposition home or self-care (01) | LOC: OT 08:00 | DX: Z09 Encounter for follow-up examination after completed treatment for conditions other than malignant neoplasm (principal); S46.012D Strain of muscle(s) and tendon(s) of the rotator cuff of left shoulder, subsequent encounter; M25.612 Stiffness of left shoulder, not elsewhere classified | CPT/HCPCS: 97010; 97014; 97035; 97110; 97140; 97164; 97165; 97530; G0283 ==

== ENCOUNTER → 2022-09-04 13:48 | Outpatient (CLI) | payer BC, SELFPAY ==
--- NOTE | 2022-09-04 13:53 | CA_ITS ---
FINAL REPORT CLINICAL HISTORY: dizziness, HTN, HLD FINDINGS: An ultrasound of the carotid arteries was performed. Duplex Doppler evaluation with spectral analysis was performed. The peak systolic velocity of the right common carotid artery is 97 cm/s. The peak systolic velocity of the right internal carotid artery is 86 cm/s and end diastolic velocity is 25 cm/s. A mild amount of plaque is present. The right external carotid artery is patent. The right vertebral artery is patent with antegrade flow. ICA/CCA ratio: 1.3 The peak systolic velocity of the left common carotid artery is 93 cm/s. The peak systolic velocity of the left internal carotid artery is 99 cm/s and end diastolic velocity 23 cm/s. A mild amount of plaque is present. The left external carotid artery is patent. The left vertebral artery is patent with antegrade flow. ICA/CCA ratio: 1.7 Bilateral patent vertebral arteries with antegrade flow. IMPRESSION: Less than 50% bilateral carotid stenosis Reviewed, Interpreted and Dictated by Romel Yao III, MD Transcribed by Leonard Maddox Authenticated and [facility]
== END ==
PROVIDERS: PCP Nurse Practitioner Family; Visit Provider Nurse Practitioner Family
DX: R42 Dizziness and giddiness (principal); I25.118 Atherosclerotic heart disease of native coronary artery with other forms of angina pectoris; I10 Essential (primary) hypertension; E78.2 Mixed hyperlipidemia; K21.9 Gastro-esophageal reflux disease without esophagitis; Z72.0 Tobacco use
CPT/HCPCS: 93306; 93880

== ENCOUNTER 2022-10-06 14:57 | Day surgery (SDC) | payer BC, SELFPAY ==
[2022-10-06 15:06] VITALS: BMI 24.0
[2022-10-06 15:19] VITALS: PULSE 58
[2022-10-06 15:29] VITALS: BP 134/63; PULSE 69; RESP 20; O2SAT 97
[2022-10-06 15:38] VITALS: BP 128/66; PULSE 71; RESP 16; O2SAT 98
--- NOTE | 2022-10-09 13:38 | EXP.LOOP ---
[facility] Loop Recorder Date: 10/06/22 Time: 15:25 Procedure Performed:: Implantation of loop recorder Indication:: dizziness Technique:: Patient was brought to the cardiac Client Service Consultant.? After informed consent obtained, 1% lidocaine with epinephrine was used to anesthetize the site along the left anterior aspect of the chest near the sternal border.? Using the preformed scalpel, an incision was made and using the supplied preloaded apparatus, the loop recorder was placed subcutaneously without difficulty.? Following the deployment of the loop recorder interrogation of the device was performed to ensure appropriate voltage was being detected.? Once this was verified, Steri-Strips were placed over the incision and the patient was prepped to discharge home.? Patient tolerated the procedure well with minimal discomfort. Impression:: Successful implantation of loop recorder Serial Number:: [employer] Model #[id number] Serial #[id number] Plan:: Routine postop care
== END 2022-10-06 15:42 | disposition home or self-care (01) ==
PROVIDERS: PCP Nurse Practitioner Family; Visit Provider Internal Medicine
DX: R55 Syncope and collapse (principal); F17.210 Nicotine dependence, cigarettes, uncomplicated; Z79.01 Long term (current) use of anticoagulants; I25.118 Atherosclerotic heart disease of native coronary artery with other forms of angina pectoris; I10 Essential (primary) hypertension; I44.7 Left bundle-branch block, unspecified
CPT/HCPCS: 33285; C1764

== ENCOUNTER 2022-11-01 22:35 | Emergency (ER) | payer BC, SELFPAY ==
[2022-11-01 22:37] VITALS: BP 143/109; PULSE 73; RESP 20; TEMP 36.7; O2SAT 96; BMI 24.0
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
[2022-11-01 23:34] VITALS: BP 118/70; PULSE 65; RESP 16; TEMP 36.8; O2SAT 100
== END 2022-11-01 23:35 | disposition home or self-care (01) ==
PROVIDERS: Emergency Provider Emergency Medicine; PCP Nurse Practitioner Family
DX: L03.313 Cellulitis of chest wall (principal); Y83.1 Surgical operation with implant of artificial internal device as the cause of abnormal reaction of the patient, or of later complication, without mention of misadventure at the time of the procedure; Q21.10 Atrial septal defect, unspecified; I20.9 Angina pectoris, unspecified; F17.210 Nicotine dependence, cigarettes, uncomplicated
CPT/HCPCS: 99283

== ENCOUNTER 2022-11-16 09:35 | Day surgery (SDC) | payer BC, SELFPAY ==
[2022-11-16 09:30] VITALS: BP 132/61; PULSE 54; RESP 20; O2SAT 97; BMI 24.5
[2022-11-16 10:15] VITALS: BP 132/61; PULSE 54; RESP 16; TEMP 36.6; O2SAT 96
--- NOTE | 2022-11-16 10:33 | EXP.LOOP ---
[facility] Loop Recorder Date: 11/16/22 Time: 10:33 Procedure Performed:: Removal of loop recorder Indication:: Nonhealing of incision with recurrent drainage Technique:: Patient was brought to the [facility] as an outpatient. After informed consent was obtained, 1% lidocaine was used anesthetize the area over the loop recorder. Using a scalpel and forceps the device was located and removed successfully without complications. Surgical glue, Steri-Strips and pressure dressing with Tegaderm placed over the site. Patient did receive IV antibiotics prior to this. Impression:: Successful removal of loop recorder Serial Number:: Not applicable Plan:: Routine postop care. Follow-up in the office in 1 week
--- NOTE | 2022-11-16 10:48 | SUR.PHASEII ---
Loop removal per Ravinder FLORES, patient had no c/o pain, sight to left chest wall reddened with no drainage or swelling, appears non healed loop removal site. Patient thin with very little adipose tissue to chest wall.
== END 2022-11-16 10:37 | disposition home or self-care (01) ==
PROVIDERS: PCP Nurse Practitioner Family; Visit Provider Internal Medicine
DX: T81.31XA Disruption of external operation (surgical) wound, not elsewhere classified, initial encounter (principal); T81.41XA Infection following a procedure, superficial incisional surgical site, initial encounter; Y71.0 Diagnostic and monitoring cardiovascular devices associated with adverse incidents; F17.210 Nicotine dependence, cigarettes, uncomplicated; Z79.899 Other long term (current) drug therapy; I10 Essential (primary) hypertension; I44.7 Left bundle-branch block, unspecified; L03.313 Cellulitis of chest wall
CPT/HCPCS: 33286

== ENCOUNTER → 2023-01-23 10:28 | Outpatient (POV) | payer BC, SELFPAY | PROVIDERS: PCP Nurse Practitioner Family; Visit Provider Dermatology | DX: Z00.00 Encounter for general adult medical examination without abnormal findings (principal) ==

== ENCOUNTER 2023-05-18 10:54 | Outpatient (CLI) | payer BC, SELFPAY ==
--- NOTE | 2023-05-18 | CA_ITS ---
FINAL REPORT TECHNIQUE: Color Doppler, duplex Doppler and nash scale sonography of the bilateral neck arterial vasculature was performed. Velocities were measured in the carotid arteries. Stenosis evaluation based on the validated velocity criteria. CLINICAL HISTORY: occasional dizziness, CAD, HTN, hyperlipidemia, smoker, hx MA. FINDINGS: The peak systolic velocity of the right common carotid artery is 72 cm/s. The peak systolic velocity of the right internal carotid artery is 113 cm/s and end diastolic velocity 40 cm/s. A mild to moderate amount of plaque is present. The right external carotid artery is patent. The right vertebral artery is patent with antegrade flow. The peak systolic velocity of the left common carotid artery is 105 cm/s. The peak systolic velocity of the left internal carotid artery is 86 cm/s and end diastolic velocity 32 cm/s. A mild to moderate amount of plaque is present. The left external carotid artery is patent.The left vertebral artery is patent with antegrade flow. IMPRESSION: Less than 50% bilateral carotid stenoses. Bilateral patent vertebral arteries with antegrade flow. If indicated, CTA or MRA could further evaluate. Reviewed, Interpreted and Dictated by Romel Yao III, MD Transcribed by Shruthi Baca Authenticated and [facility]
== END 2023-05-18 23:59 ==
LOC: RT 10:56
PROVIDERS: PCP Nurse Practitioner; Visit Provider Nurse Practitioner
DX: I25.10 Atherosclerotic heart disease of native coronary artery without angina pectoris (principal); F17.210 Nicotine dependence, cigarettes, uncomplicated
CPT/HCPCS: 93880

== ENCOUNTER 2023-07-14 18:01 | Emergency (ER) | payer BC, SELFPAY ==
[2023-07-14 18:03] VITALS: BP 169/82; PULSE 72; RESP 20; TEMP 37.3; O2SAT 97; BMI 24.0
--- NOTE | 2023-07-14 18:13 | ECG_ITS ---
APPROVED REPORT Exam: Resting ECG HR:63 bpm ECG Measurements Heart Rate 63 AXES UT 168 P 82 QRSd 150 QRS 48 QT 430 T -2 QTc 438 Conclusion SINUS RHYTHM WITH OCCASIONAL VENTRICULAR PREMATURE COMPLEXES LEFT BUNDLE BRANCH BLOCK [120+ ms QRS DURATION, 80+ ms Q/S IN V1/V2, 85+ ms R IN I/aVL/V5/V6] ABNORMAL ECG UNCONFIRMED REPORT Electronically signed by : SHARON ANAND, 07/15/2023 03:29:30
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
--- NOTE | 2023-07-14 18:41 | CT_ITS ---
PROCEDURE INFORMATION: Exam: CT Head Without Contrast Exam date and time: 07/14/2023 7:01 PM Age: 68 years old Clinical indication: Dizziness; Additional info: Chronic dizziness TECHNIQUE: Imaging protocol: Computed tomography of the head without contrast. Radiation optimization: All CT scans at this facility use at least one of these dose optimization techniques: automated exposure control; mA and/or kV adjustment per patient size (includes targeted exams where dose is matched to clinical indication); or iterative reconstruction. COMPARISON: US CA CAROTID DUPLEX BI 05/18/2023 11:12 AM FINDINGS: Brain: No intracranial hemorrhage. Mild atrophic changes of the ventricles and subarachnoid spaces. Mild chronic small-vessel ischemic changes noted. No mass, mass effect or midline shift. Intracranial atherosclerotic changes are noted. Cerebral ventricles: See Brain finding. Paranasal sinuses: Visualized sinuses are unremarkable. No fluid levels. Mastoid air cells: Visualized mastoid air cells are well aerated. Bones: [id number] mucosal thickening of the ethmoids. Soft tissues: Unremarkable. IMPRESSION: 1. No acute intracranial abnormality. Chronic changes as above. 2. [id number] mucosal thickening of the ethmoids.
[2023-07-14 18:45] VITALS: BP 143/72; PULSE 60; O2SAT 97
[2023-07-14] MEDS: hydrOXYzine pamoate 25MG CAPSULE 50 MG PO (18:49)
[2023-07-14 18:51] LABS: Chloride 108 mmol/L (98-107); Sodium 142 mmol/L (136-145)
[2023-07-14 18:52] LABS: Basophils # 0.1 K/mm3 (0-0.2); Basophils % 0.7 % (0.1-2.0); Eosinophils # 0.5 K/mm3 (0.0-0.4); Eosinophils % 4.8 % (0.1-12.0); Hematocrit 46.9 % (42.0-52.0); Hemoglobin 15.5 g/dL (14.1-18.0); Lymphocytes # 3.6 K/mm3 (0.7-4.5); Lymphocytes % 35.6 % (10-50); Mean Corpuscular Hemoglobin 32.4 pg (27.0-31.2); Mean Corpuscular Volume 98.3 fl (80-94); Mean Platelet Volume 8.8 fl (7.4-10.4); Monocytes # 0.5 K/mm3 (0.1-1.0); Monocytes % 5.3 % (1.7-9.3); Neutrophils # 5.4 K/mm3 (1.8-7.8); Neutrophils % 53.6 % (37.0-80.0); Platelet Count 296 K/mm3 (142-424); Potassium 3.8 mmoL/L (3.5-5.1); Red Blood Count 4.77 M/mm3 (4.60-6.20); White Blood Count 10.1 K/mm3 (4.8-10.8)
[2023-07-14 18:54] LABS: Alanine Aminotransferase 31 U/L (12-78); Albumin Level 4.2 g/dl (3.5-5.0); Albumin/Globulin Ratio 1.6 (1.1-1.8); Alkaline Phosphatase 82 U/L (38-126); Anion Gap 9.8 mEq/L (5-15); Aspartate Amino Transferase 43 U/L (17-59); Bilirubin,Total 0.5 mg/dl (0.2-1.3); Blood Urea Nitrogen 16 mg/dl (9-20); Calcium 9.5 mg/dl (8.4-10.2); Carbon Dioxide 28 mmol/L (22.0-30.0); Creatinine Clearance Estimated 58 mL/min (50-200); Estimated Glomerular Filt Rate 67 ml/min (>60); GFR (African American) 81 ML/MIN (>60); Globulin 2.7 g/dL (1.3-3.2); Glucose 113 mg/dl (74-100); Total Protein,Serum 6.9 g/dl (6.3-8.2)
[2023-07-14 18:55] LABS: Magnesium 1.7 mg/dl (1.6-2.3)
[2023-07-14 19:06] LABS: Troponin I < 0.01 ng/ml (0.00-0.034)
--- NOTE | 2023-07-14 19:08 | PC.NURSE ---
patient back from CT
[2023-07-14 21:09] LABS: Troponin I < 0.01 ng/ml (0.00-0.034)
[2023-07-14 21:45] VITALS: BP 150/80; PULSE 70; RESP 20; TEMP 36.9; O2SAT 99
== END 2023-07-14 21:46 | disposition home or self-care (01) ==
PROVIDERS: Emergency Provider Emergency Medicine; PCP Nurse Practitioner
DX: F41.9 Anxiety disorder, unspecified (principal); I49.3 Ventricular premature depolarization; I44.7 Left bundle-branch block, unspecified; R42 Dizziness and giddiness; F17.210 Nicotine dependence, cigarettes, uncomplicated; I10 Essential (primary) hypertension
CPT/HCPCS: 70450; 80053; 83735; 84484; 85025; 93005; 99284

== ENCOUNTER 2023-07-26 16:55 | Emergency (ER) | payer BC, SELFPAY ==
[2023-07-26 17:00] VITALS: BP 123/59; PULSE 65; RESP 20; TEMP 36.6; O2SAT 98; BMI 24.0
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
[2023-07-26 17:27] VITALS: BP 123/59; PULSE 65; RESP 20; TEMP 36.6; O2SAT 98
== END 2023-07-26 17:30 | disposition home or self-care (01) ==
PROVIDERS: Emergency Provider Nurse Practitioner; PCP Nurse Practitioner
DX: T16.1XXA Foreign body in right ear, initial encounter (principal); W44.8XXA Other foreign body entering into or through a natural orifice, initial encounter
CPT/HCPCS: 99212; 99214; G0463

== ENCOUNTER 2023-12-12 15:37 | Outpatient (CLI) | payer BC, SELFPAY ==
[2023-12-12 16:06] LABS: Basophils # 0.1 K/mm3 (0-0.2); Basophils % 0.7 % (0.1-2.0); Eosinophils # 0.4 K/mm3 (0.0-0.4); Eosinophils % 4.6 % (0.1-12.0); Hematocrit 42.6 % (42.0-52.0); Hemoglobin 14.4 g/dL (14.1-18.0); Lymphocytes # 2.7 K/mm3 (0.7-4.5); Lymphocytes % 29.4 % (10-50); Mean Corpuscular HGB Conc 33.8 g/dL (31.8-35.4); Mean Corpuscular Hemoglobin 32.2 pg (27.0-31.2); Mean Corpuscular Volume 95.4 fl (80-94); Mean Platelet Volume 8.7 fl (7.4-10.4); Monocytes # 0.5 K/mm3 (0.1-1.0); Monocytes % 5.3 % (1.7-9.3); Neutrophils # 5.4 K/mm3 (1.8-7.8); Platelet Count 269 K/mm3 (142-424); Red Blood Count 4.47 M/mm3 (4.60-6.20); Red Cell Distribution Width 13.6 % (11.5-17.5); White Blood Count 9.1 K/mm3 (4.8-10.8)
[2023-12-12 16:12] LABS: Chloride 111 mmol/L (98-107); Potassium 3.9 mmoL/L (3.5-5.1); Sodium 139 mmol/L (136-145)
[2023-12-12 16:14] LABS: Blood Urea Nitrogen 15 mg/dl (9-20); Estimated Glomerular Filt Rate 74 ml/min (>60); GFR (African American) 90 ML/MIN (>60)
[2023-12-12 16:15] LABS: Alanine Aminotransferase 28 U/L (12-78); Albumin/Globulin Ratio 1.7 (1.1-1.8); Alkaline Phosphatase 66 U/L (38-126); Anion Gap 7.9 mEq/L (5-15); Aspartate Amino Transferase 39 U/L (17-59); Bilirubin,Total 0.4 mg/dl (0.2-1.3); Carbon Dioxide 24 mmol/L (22.0-30.0); Cholesterol 106 mg/dl (140-200); Globulin 2.4 g/dL (1.3-3.2); Total Protein,Serum 6.4 g/dl (6.3-8.2); Triglycerides 87 mg/dl (30-150); VLDL Cholesterol 17 mg/dL (0-40)
[2023-12-12 16:16] LABS: Calcium 9.4 mg/dl (8.4-10.2); Chol/HDL Ratio 3.3 (1-3.5); Glucose 97 mg/dl (74-100); HDL Cholesterol 32 mg/dl (40-60)
[2023-12-12 16:58] LABS: Direct LDL Cholesterol 53.91 mg/dL (100-129)
[2023-12-12 17:10] LABS: Hemoglobin A1C 5.8 % (4.0-6.0)
== END 2023-12-12 23:59 | disposition home or self-care (01) ==
LOC: LAB 15:39
PROVIDERS: PCP Nurse Practitioner; Visit Provider Nurse Practitioner
DX: I10 Essential (primary) hypertension (principal); K21.9 Gastro-esophageal reflux disease without esophagitis; F41.9 Anxiety disorder, unspecified; Z72.0 Tobacco use
CPT/HCPCS: 36415; 80053; 80061; 83036; 85025

== ENCOUNTER 2024-02-08 07:33 | Day surgery (SDC) | payer BC, SELFPAY ==
[2024-02-04 09:44] VITALS: BMI 23.8
[2024-02-08 08:02] VITALS: BP 133/92; PULSE 82; RESP 17; TEMP 36.2; O2SAT 97
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
--- NOTE | 2024-02-08 09:19 | P.PCN_ITS ---
Procedure: Date: 02/08/24 Patient Date of :: 1955 Procedure Performed:: Colonoscopy to cecum with multiple polypectomy Indications:: Patient is a 68-year-old male who presents for follow-up colonoscopy. He had undergone colonoscopy in 2011 in [place] which was reportedly unremarkable. He had subsequent colonoscopies in 2017 with several polyps removed and in [address] Molina at which time he had several diminutive polyps removed. Dr. Molina had recommended follow-up colonoscopy in 5 years after his colonoscopy in 2019. He was sent to [facility] for EGD and colonoscopy which was performed on 08/26/2021. He had 3 tubular adenomas removed and I recommended repeat colonoscopy in 3 years. He presents for a follow-up colonoscopy. Performing Provider:: Romel Chery MD Referring Provider:: Lesia Lazo Sedation:: MAC sedation Procedure:: Patient history was obtained and appropriate physical examination was performed. Patient's medications and allergies were reviewed. Informed consent was obtained after explaining the benefits, alternatives, and risks of the procedure including, but not limited to, bleeding, perforation, missed lesions, and adverse reaction to anesthesia medications. Patient was transported to endoscopy procedure room. Patient was connected to monitoring devices. Throughout the procedure the patient's blood pressure, pulse, and oxygen saturations were monitored continuously. Patient identification and planned procedure were verified by the staff. Patient was positioned in lateral decubitus position. Digital anorectal exam was performed. Variable stiffness Olympus colonoscope was inserted and advanced under direct visualization to the cecum. Adequacy of the colonic preparation was noted. The colonoscope was then slowly withdrawn while carefully examining the color, texture, anatomy, and integrity of the mucosoa circumferentially. Within the rectum retroflexion was performed. Colonoscope was then withdrawn. Impression: There was some opaque stool coating the masters of the right colon but this was able to be cleared with irrigation and suctioning. In the descending colon there is a tiny polyp removed with biopsy forceps. In the proximal sigmoid colon there was a tiny diminutive polyp removed with biopsy forceps. Rectosigmoid region there was a prominent hyperplastic appearing polyp removed with biopsy forceps. Within the rectum there were several prominent but hyperplastic appearing polyps removed with biopsy forceps. Findings:: He had a total of 6 polyps removed. All of these appeared to be rather small and diminutive and removed with biopsy forceps. Recommendations:: Repeat colonoscopy pending pathology. If adenomatous component likely 3 years. Otherwise 5 years. Complications:: None immediately apparent Estimated blood obtained (mL): 1 Colonoscopy Component Colonoscopy Component Was a colonoscopy performed during today's procedure?: Yes Recommended follow up colonoscopy of at least 10 years?: No If no, follow up colonoscopy recommended in ___ years?: 3-5 Reason for not recommending >/= 10 yr follow-up interval?: See above
[2024-02-08 09:41] VITALS: O2SAT 97
[2024-02-08 10:12] VITALS: BP 103/55; PULSE 56; RESP 18; TEMP 36.2; O2SAT 97
[2024-02-08 10:22] VITALS: BP 103/55; PULSE 62; RESP 18; O2SAT 98
[2024-02-08 10:32] VITALS: BP 111/63; PULSE 53; RESP 18; O2SAT 98
[2024-02-08 10:42] VITALS: BP 114/58; PULSE 56; RESP 18; O2SAT 98
== END 2024-02-08 10:42 | disposition home or self-care (01) ==
PROVIDERS: PCP Family Medicine; Visit Provider Surgery
PROC: 0DJD8ZZ Inspection of Lower Intestinal Tract, Via Natural or Artificial Opening Endoscopic (ICD-10-PCS; CPT 45380; principal; 2024-02-08 08:30)
DX: K63.5 Polyp of colon (principal); Z09 Encounter for follow-up examination after completed treatment for conditions other than malignant neoplasm; Z86.0100 Personal history of colon polyps, unspecified
CPT/HCPCS: 45380

== ENCOUNTER 2024-05-04 18:39 | Emergency (ER) | payer BC, SELFPAY ==
[2024-05-04 18:40] VITALS: BP 105/72; PULSE 70; RESP 18; TEMP 36.8; O2SAT 98; BMI 24.0
--- NOTE | 2024-05-04 18:43 | ECG_ITS ---
APPROVED REPORT Exam: Resting ECG HR:72 bpm ECG Measurements Heart Rate 72 AXES KS 177 P 73 QRSd 146 QRS 123 QT 415 T -22 QTc 440 Conclusion SINUS RHYTHM WITH OCCASIONAL VENTRICULAR PREMATURE COMPLEXES RIGHT AXIS DEVIATION [QRS AXIS > 100] INTRAVENTRICULAR CONDUCTION DELAY [130+ ms QRS DURATION] Electronically signed by : RENY SPAIN, 05/04/2024 23:40:10
[2024-05-04 19:02] LABS: Basophils % 0.4 % (0.1-2.0); Eosinophils # 0.3 K/mm3 (0.0-0.4); Eosinophils % 3.4 % (0.1-12.0); Hematocrit 42.1 % (42.0-52.0); Hemoglobin 14.2 g/dL (14.1-18.0); Lymphocytes # 2.6 K/mm3 (0.7-4.5); Lymphocytes % 28.1 % (10-50); Mean Corpuscular HGB Conc 33.7 g/dL (31.8-35.4); Mean Corpuscular Hemoglobin 31.4 pg (27.0-31.2); Mean Corpuscular Volume 93.1 fl (80-94); Mean Platelet Volume 10.9 fl (7.4-10.4); Monocytes # 0.7 K/mm3 (0.1-1.0); Monocytes % 7.8 % (1.7-9.3); Neutrophils # 5.6 K/mm3 (1.8-7.8); Neutrophils % 60.1 % (37.0-80.0); Platelet Count 289 K/mm3 (142-424); Red Blood Count 4.52 M/mm3 (4.60-6.20); Red Cell Distribution Width 12.8 % (11.5-17.5); White Blood Count 9.4 K/mm3 (4.8-10.8)
[2024-05-04 19:17] LABS: Albumin Level 4.3 g/dl (3.5-5.0); Chloride 110 mmol/L (98-107); Potassium 4.1 mmoL/L (3.5-5.1); Sodium 141 mmol/L (136-145)
[2024-05-04 19:20] LABS: Alanine Aminotransferase 36 U/L (12-78); Alkaline Phosphatase 74 U/L (38-126); Anion Gap 7.1 mEq/L (5-15); Aspartate Amino Transferase 41 U/L (17-59); Bilirubin,Total 0.3 mg/dl (0.2-1.3); Blood Urea Nitrogen 16 mg/dl (9-20); Calcium 8.7 mg/dl (8.4-10.2); Carbon Dioxide 28 mmol/L (22.0-30.0); Creatinine Clearance Estimated 64 mL/min (50-200); Estimated Glomerular Filt Rate 84 ml/min (>60); GFR (African American) 102 ML/MIN (>60); Globulin 2.2 g/dL (1.3-3.2); Glucose 94 mg/dl (74-100); Total Protein,Serum 6.5 g/dl (6.3-8.2)
[2024-05-04 19:36] LABS: Troponin I < 0.01 ng/ml (0.00-0.034)
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
--- NOTE | 2024-05-04 20:21 | XR_ITS ---
PROCEDURE INFORMATION: Exam: XR Chest Exam date and time: 05/04/2024 8:34 PM Age: 68 years old Clinical indication: Pain; Chest pressure; Additional info: Chest pain TECHNIQUE: Imaging protocol: Radiologic exam of the chest. Views: 1 view. COMPARISON: CR XR CHEST PORTABLE 08/19/2022 1:20 PM FINDINGS: Lungs: Pleuroparenchymal scarring of the lung bases with subsegmental atelectasis is present without consolidations or pleural effusions that project above the diaphragm. Pleural spaces: Unremarkable. No pleural effusion. No pneumothorax. Heart/Mediastinum: Unremarkable. No cardiomegaly. Bones/joints: Unremarkable. IMPRESSION: Pleuroparenchymal scarring of the lung bases with subsegmental atelectasis is present without consolidations or pleural effusions that project above the diaphragm.
[2024-05-04 22:27] LABS: Troponin I < 0.01 ng/ml (0.00-0.034)
[2024-05-04 22:47] VITALS: BP 154/85; PULSE 60; RESP 18; TEMP 37; O2SAT 99
== END 2024-05-04 22:36 | disposition home or self-care (01) ==
PROVIDERS: Emergency Provider Emergency Medicine; PCP Family Medicine
DX: R07.89 Other chest pain (principal); R07.81 Pleurodynia; R05.9 Cough, unspecified
CPT/HCPCS: 36415; 71045; 80053; 84484; 85025; 93005; 99284

== ENCOUNTER 2024-05-19 13:54 | Outpatient (CLI) | payer BC, SELFPAY ==
--- NOTE | 2024-05-19 13:55 | CT_ITS ---
FINAL REPORT TECHNIQUE: Multiple axial CT sections were performed from the foramen magnum to the vertex. Coronal and sagittal reformatted images were also obtained. Precontrast and postcontrast injection images were obtained. This study was performed with technique to keep radiation doses as low as reasonably achievable, (ALARA). Individualized dose reduction techniques using automated exposure control or adjustment of mA and/or kV according to the patient size were employed. CLINICAL HISTORY: CORONARY ATHEROSCLEROSIS, dizziness, light headedness COMPARISON: 07/14/2023 FINDINGS: The ventricles are normal in size. There is no evidence of hemorrhage. No masses are identified. No extra-axial fluid collection is seen. There is a mucous retention cyst or polyp present in the left maxillary sinus. No osseous abnormality is seen on the bone window images. Postcontrast images demonstrate no abnormal enhancement. IMPRESSION: No intracranial abnormality identified. Mucous retention cyst versus polyp left maxillary sinus. Reviewed, Interpreted and Dictated by Cami Ramon MD Transcribed by Hayley Young Authenticated and [facility]
[2024-05-19] MEDS: IOPAMIDOL-300 (61%) 100ML VIAL 100 ML IV (14:16)
[2024-05-19] MEDS: SODIUM CHLORIDE 0.9% 10ML SYR (RAD ONLY) 10 ML IV (14:16)
== END 2024-05-19 23:59 | disposition home or self-care (01) ==
PROVIDERS: PCP Nurse Practitioner; Visit Provider Nurse Practitioner
DX: R42 Dizziness and giddiness (principal); I25.10 Atherosclerotic heart disease of native coronary artery without angina pectoris
CPT/HCPCS: 70470; Q9967

== ENCOUNTER 2024-08-27 12:51 | Outpatient (CLI) | payer BC, SELFPAY ==
--- OUTSIDE RECORDS SUMMARY | 2024-08-27 12:54 | XMS_ITS | Encounter Summary ---
Author Organization [employer] ([place], [place], [place], [place]) Address [address] [place] [address] Care Team Providers Care Property Controller Name Role Phone Unavailable Primary Care Provider Unavailabl e Encounter Details Date Type Department Care Team (Late st Contact Info) Description 03/18/2018 Transcribed Document [facility] [place] [address] [place] [address] ProviderParis MD [address], [place] [id number] Social History Tobacco Use Types Packs/Day Years Used Date Smoking Tobacco: Never Assessed Sex and Gender Information Value Date Recorded Sex Assigned at Not on file Legal Sex Male 4:23 PM CDT Gender Identity Not on file Sexual Orientation Not on file documented as of this encounter Miscellaneous Notes * [employer]ner Conversion Note - Paris ProviderMD - 03/18/2018 5:52 PM HEAD OF [employer]ICS [employer]PLIANCE DATE OF STUDY: LEXISCAN MYOVIEW PERFUSION STUDY INDICATION: Chest pain. REFERRING PHYSICIAN: Dr. Eriberto Burnett RESTING ELECTROCARDIOGRAM: Sinus bradycardia, rightward axis, left bundle branch block. LEXISCAN STRESS: Standard Lexiscan stress protocol. Peak heart rate response of 97 beats per minute. Blood pressure response to 100/54 mmHg were achieved. There is no chest discomfort. No arrhythmia. The stress electrocardiogram is nondiagnostic secondary to left bundle branch block. 11 mCi of Myoview was administered prior to rest scan and 32.7 mCi prior to the post stress scan. MYOVIEW PERFUSION DATA: Reversible defect: None. Fixed defect: There is severe fixed defect involving basal, mid, distal inferior wall. Left ventricular function: Gated measurement of left ventricular systolic function post stress was 51%. Inferior wall hypokinesia. IMPRESSION: Abnormal Lexiscan Myoview perfusion study. No evidence of ischemia. Fixed inferior defect most likely represent scar in the right coronary artery territory. Low normal left ventricular systolic function post stress. Mason Mendoza M.D. Dict: 03/18/2018 17:52:42 Trans: 03/18/2018 18:07:29 CC1: Mason Mendoza M.D. CC2: Dr. Eriberto Burnett Electronically signed by [facility] Conversion Hris Analyst Cerner at 06/15/2022 2:24 PM CDT documented in this encounter Plan of Treatment Not on file documented as of this encounter Visit Diagnoses Not on filedocumented in this encounter
--- OUTSIDE RECORDS SUMMARY | 2024-08-27 12:54 | XMS_ITS | Referral Summary ---
Author Organization [employer] ([place], [place], [place], [place]) Address [address] [place] [address] Care Team Providers Care Mobile Application Developer Name Role Phone Unavailable Primary Care Provider Unavailabl e Medications prasugreL (EFFIENT) 5 mg tablet Take 1 tablet (5 mg total) by mouth daily. 90 tablet 2 02/21/2022 Active Social History Tobacco Use Types Packs/Day Years Used Date Smoking Tobacco: Never Assessed Sex and Gender Information Value Date Recorded Sex Assigned at Not on file Legal Sex Male 4:23 PM CDT Gender Identity Not on file Sexual Orientation Not on file Plan of Treatment Not on file
--- OUTSIDE RECORDS SUMMARY | 2024-08-27 12:54 | XMS_ITS | Clinical Summary ---
Author Organization [employer] ([place], [place], [place], [place]) Address [address] [place] [address] Care Team Providers Care Fitness Sales Associate Name Role Phone Unavailable Primary Care Provider [...]
--- OUTSIDE RECORDS SUMMARY | 2024-08-27 12:54 | XMS_ITS | Clinical Summary ---
Author Organization [facility] Address [address] [place] [address] Care Team Providers Care Portable Sawmill Operator Name Role Phone Unavailable Primary Care Provider Unavailabl e Social History Tobacco Use Types Packs/Day Years Used Date Smoking Tobacco: Never Assessed Sex and Gender Information Value Date Recorded Sex Assigned at Not on file Legal Sex Male 10:31 AM EDT Gender Identity Not on file Sexual Orientation Not on file Last Filed Vital Signs Vital Sign Reading Time Taken Comments Blood Pressure 124/59 09/05/2022 11:48 AM EDT Pulse 61 09/05/2022 11:48 AM EDT Temperature - - Respiratory Rate - - Oxygen Saturation - - Inhaled Oxygen Concentration - - Weight 63 kg (139 lb) 09/05/2022 11:48 AM EDT Height 162.6 cm (5' 4 ) 09/05/2022 11:48 AM EDT Body Mass Index 23.86 09/05/2022 11:48 AM EDT Plan of Treatment Health Maintenance Due Date Last Done Comments UKY-Depression Screening 1955 UKY-/Child/Adol SDOH Screenings 1955 UKY- SDOH Screenings 07/05/1973 UKY-Adult SDOH Screenings 07/05/1973 UKY-DTaP,Tdap,and Td Vaccine s (1 - Tdap) 05/04/1996 05/03/1996 CT Colonography 07/05/2000 Colonoscopy 07/05/2000 FIT-DNA 07/05/2000 FIT 07/05/2000 FOBT 07/05/2000 Sigmoidoscopy 07/05/2000 UKY-Colorectal Cancer Screening 07/05/2000 UKY-Pneumococcal Vaccine: 50 + Years (1 of 1 - PCV) 07/05/2005 UKY-Zoster Vaccines (1 of 2) 07/05/2005 [id number] Vaccine (2 - season) 2023 05/05/2020 UKY-Influenza Vaccine (Seaso n Ended) 2024 11/20/2019, 12/12/2016 UKY-RSV Vaccine: 60+ Years o r (1 - 1-dose 75+ series) 07/05/2030 HPV Vaccines Aged Out No longer eligi ble based on patient's age to complete this topic UKY-HIB Vaccines Aged Out No longer e ligible based on patient's age to complete this topic UKY-Hepatitis A Vaccines Aged Out No longer eligible based on patient's age to complete this topic UKY-IPV Vaccines Aged Out No longer e ligible based on patient's age to complete this topic UKY-Rotavirus Vaccines Aged Out No lo nger eligible based on patient's age to complete this [place] [address]
--- OUTSIDE RECORDS SUMMARY | 2024-08-27 12:54 | XMS_ITS | Encounter Summary ---
Author Organization [employer] ([place], [place], [place], [place]) Address [address] [place] [address] Care Team Providers Care Entry Level Civil Engineer Name Role Phone Unavailable Primary Care Provider Unavailabl e Encounter Details Date Type Department Care Team (Late st Contact Info) Description 05/04/2020 Transcribed Document [facility] [place] Medicine [facility] [place] [address] ProviderParis MD [address] [place], [place] [id number] Social History Tobacco Use Types Packs/Day Years Used Date Smoking Tobacco: Never Assessed Sex and Gender Information Value Date Recorded Sex Assigned at Not on file Legal Sex Male 4:23 PM CDT Gender Identity Not on file Sexual Orientation Not on file documented as of this encounter Miscellaneous Notes * Cerner Conversion Note - Paris ProviderMD - 05/04/2020 3:59 PM STROBOSCOPE OPERATOR DATE OF SERVICE: LEXISCAN MYOVIEW PERFUSION STUDY INDICATION: Chest pain, abnormal EKG. RESTING ELECTROCARDIOGRAM: Marked sinus bradycardia, left bundle-branch block. LEXISCAN STRESS: Standard Lexiscan stress protocol. Peak heart rate response of 88 beats per minute, blood pressure response to 124/81 mmHg were achieved. There was no chest discomfort. No arrhythmia. The stress electrocardiogram is nondiagnostic secondary to the left bundle-branch block. 10 mCi of Myoview was administered prior to rest scan and 32.4 mCi prior to the post stress scan. MYOVIEW PERFUSION DATA: Reversible defect: There is minimal partial reversible defect involving the distal inferior wall. Fixed defects: There is severe fixed defect involving the basal mid inferior wall and moderate partially fixed defect involving the distal inferior wall. Left ventricular function: Gated management of left ventricular systolic function post stress is 49%. Inferior wall hypokinesia. IMPRESSION: Abnormal Lexiscan Myoview perfusion study. Mixture of mostly scar with minimal ischemia involving the inferior wall. Mild low normal left ventricular systolic function post stress. /[id number] Mason Mendoza MD SSL/AQ / SSL / MODL /[id number] CC: Dr. Eriberto Burnett Electronically signed by [facility], [facility] Conversion Avid Editor Cerner at 06/15/2022 2:37 PM CDT documented in this encounter Plan of Treatment Not on file documented as of this encounter Visit Diagnoses Not on filedocumented in this encounter
--- NOTE | 2024-08-28 14:06 | CA_ITS ---
APPROVED REPORT EXAM: Comprehensive 2D, Doppler, and color-flow Echocardiogram Production Lead: Jessie Colon, RT(R) Ht: 5 ft 4 in Wt: 141lbs BSA: 1.69 BP: 129/47 mmHg Indications: fatigue, chest pain Echo Enhancing Agent Indication: Rule out Shunt Agent(s) / Amount(s) Used: Agitated Saline 20 cc 2D Dimensions Left Atrium 3.54 cm M: 3.0 - 4.0 LVEF (Lozano's) 59.90 % M: 52 - 72 LVOT 1.97 cm (M/F) 1.5-2.5 LV Volume 107.30 mL M: 62 - 150 LV Volume Index 63.5 mL/m2 M: 34 - 74 LA Volume 28.20 mL LA Volume Index 16.69 mL/m2 (M/F) 16-34 EF AP4 59.70 % EF AP2 63.5 % EF BP 59.9 % GL Strain -24.0 % M-Mode Dimensions RVDd 3.10 cm (0.9-2.6) LVDd 4.31 cm (3.5-5.7) Ao Diam 2.82 cm (2.0-3.7) LVDs 3.88 cm (3.5-5.7) IVSd 0.82 cm (0.6-1.1) PWd 0.84 cm (0.6-1.1) EF (Teich) 22.00% FS 10.00% EDV (Teich) 83.50 mL ESV (Teich) 65.10 mL LV Diastology E Decel Time 183 (160-240 msec) E/A Ratio 0.9 MED E' 6.6 (>= 7 cm/sec) E'/MED E' Ratio 13.94 (<= 14) LAT E' 12.7 (>= 10 cm/sec) E/LAT E' Ratio 7.24 (<= 14) Mitral Valve MV E Max Vinh. 92.0 (40-130 cm/s) MV A Velocity 108.0 (40-130 cm/s) E/A Ratio 0.86 MV Decel. Time 183 (160-240 ms) Tricuspid Valve TR P. Velocity 317.00 cm/s Left Ventricle The left ventricle is normal size. Left ventricular systolic function is mildly decreased. There is normal left ventricular wall thickness. There is mild global hypokinesis present. The left ventricular diastolic function is normal. LVEF is 45%. Right Ventricle The right ventricle is normal size. The right ventricular systolic function is normal. Atria The left atrium size is normal. The right atrium size is normal. There is no Doppler evidence of interatrial shunt. Agitated saline administration demonstrates no evidence of interatrial shunt. Aortic Valve The aortic valve opens well. There is no aortic valvular stenosis. No aortic regurgitation is present. Mitral Valve The mitral valve is normal in structure. No evidence of mitral valve stenosis. Mild mitral regurgitation. Tricuspid Valve Tricuspid valve is grossly normal in structure and function. Mild tricuspid regurgitation. RVSP is 30-35 mmHg. Pulmonic Valve The pulmonary valve is normal in structure. Trace pulmonic regurgitation. Great Vessels The aortic root is normal in size. IVC is normal in size and collapses >50% with inspiration. Pericardium There is no pericardial effusion. Other Information Study Quality: Fair Conclusion Mildly reduced LV systolic function (LVEF 45%). Mild MR, mild TR. No Doppler evidence of interatrial shunt. Agitated saline administration demonstrates no evidence of interatrial shunt. Note, the patient had frequent PVCs during acquisition of the study images. Further evaluation for the PVCs is suggested with rhythm monitoring + cardiac MRI (cardiomyopathy protocol) may be suggested, if clinically indicated and feasible. Electronically signed by : Emely Laguerre MD 09/01/2024 12:16:36
== END 2024-08-27 23:59 | disposition home or self-care (01) ==
LOC: RT 12:51
PROVIDERS: PCP Nurse Practitioner; Visit Provider Nurse Practitioner
DX: I08.1 Rheumatic disorders of both mitral and tricuspid valves (principal); I49.3 Ventricular premature depolarization; I25.10 Atherosclerotic heart disease of native coronary artery without angina pectoris; I10 Essential (primary) hypertension; R94.31 Abnormal electrocardiogram [ECG] [EKG]; R93.1 Abnormal findings on diagnostic imaging of heart and coronary circulation
CPT/HCPCS: 93306

== ENCOUNTER 2024-09-02 11:09 | Outpatient (CLI) | payer BC, SELFPAY ==
--- NOTE | 2024-09-02 | CA_ITS ---
APPROVED REPORT Exam: Exercise Treadmill Technologist: Gwen Andrew Ht: 5 ft 4 in Wt: 141 lbs BSA: 1.69 m2 HR: 61 bpm BP: 139/41 mmHg Stress Test Details Test: Exercise stress testing was performed using a protocol. HR Resting HR: 61 bpm Max Heart Rate (APMHR): 151 bpm Max HR Achieved: 151 bpm Target HR (85% APMHR): 128 bpm % of APMHR: 100 Recovery HR: 86 bpm BP Resting BP: 139.0/41.0 mmHg Max BP: 170.0/63.0 mmHg Recovery BP: 168.0/57.0 mmHg ECG Resting ECG: Sinus rhythm Stress ECG Conclusion Symptoms: Fatigue, dyspnea Arrhythmias/Ectopy: PVC ST-T Changes: Baseline ST depression > 1 mm Conclusion: EKG abnormal due to ST depression. Electronically signed by : Emely Laguerre MD 09/02/2024 23:39:56
--- OUTSIDE RECORDS SUMMARY | 2024-09-02 11:11 | XMS_ITS | Encounter Summary ---
Author Organization [employer] ([place], [place], [place], [place]) Address [address] [place] [address] Care Team Providers Care Telemetry Technician Name Role Phone Unavailable Primary Care Provider Unavailabl e Encounter Details Date Type Department Care Team (Late st Contact Info) Description 05/04/[address] [facility] [place] Family Medicine [facility] [place] [address] ProviderParis MD [address], [place] [id number] Social History Tobacco Use Types Packs/Day Years Used Date Smoking Tobacco: Never Assessed Sex and Gender Information Value Date Recorded Sex Assigned at Not on file Legal Sex Male 4:23 PM CDT Gender Identity Not on file Sexual Orientation Not on file documented as of this encounter Miscellaneous Notes * Cerner Conversion Note - Paris ProviderMD - 05/04/2020 3:59 PM COLOR PRINT INSPECTOR DATE OF SERVICE: LEXISCAN MYOVIEW PERFUSION STUDY [...] normal left ventricular systolic function post stress. /[id number] Mason Mendoza MD SSL/AQ / SSL / MODL /[id number] CC: Dr. Eriberto Burnett Electronically signed by [facility], [facility] Conversion Wood Milling Machine Operator Cerner at 06/15/2022 2:37 PM CDT documented in this encounter Plan of Treatment Not on file documented as of this encounter Visit Diagnoses Not on filedocumented in this encounter
--- OUTSIDE RECORDS SUMMARY | 2024-09-02 11:11 | XMS_ITS | Referral Summary ---
Author Organization [employer] ([place], [place], [place], [place]) Address [address] [place] [address] Care Team Providers Care Pressure Control Supervisor Name Role Phone Unavailable Primary Care Provider [...]
--- OUTSIDE RECORDS SUMMARY | 2024-09-02 11:11 | XMS_ITS | Encounter Summary ---
Author Organization [employer] ([place], [place], [place], [place]) Address [address] [place] [address] Care Team Providers Care Certified Caregiver Name Role Phone Unavailable Primary Care Provider Unavailabl e Encounter Details Date Type Department Care Team (Late st Contact Info) Description 03/18/2018 Transcribed Document [facility] [place] [address] [place] [address] ProviderParis MD [address] [id number] Social History Tobacco Use Types Packs/Day Years Used Date Smoking Tobacco: Never Assessed Sex and Gender Information Value Date Recorded Sex Assigned at Not on file Legal Sex Male 4:23 PM CDT Gender Identity Not on file Sexual Orientation Not on file documented as of this encounter Miscellaneous Notes * Cerner Conversion Note - Paris ProviderMD - 03/18/2018 5:52 PM CONTROL CLERK HEAD DATE OF STUDY: LEXISCAN MYOVIEW PERFUSION STUDY [...] CC2: Dr. Eriberto Burnett Electronically signed by [facility], [facility] Conversion Metal Hardener Cerner at 06/15/2022 2:24 PM CDT documented in this encounter Plan of Treatment Not on file documented as of this encounter Visit Diagnoses Not on filedocumented in this encounter
--- OUTSIDE RECORDS SUMMARY | 2024-09-02 11:11 | XMS_ITS | Clinical Summary ---
Author Organization [employer] ([place], [place], [place], [place]) Address [address] [place] [address] Care Team Providers Care Patient Relations Coordinator Name Role Phone Unavailable Primary Care Provider [...]
--- OUTSIDE RECORDS SUMMARY | 2024-09-02 11:11 | XMS_ITS | Clinical Summary ---
Author Organization [facility] Address [address] [place] [address] Care Team Providers Care Fisheries Inspector Name Role Phone Unavailable Primary Care Provider [...] 07/05/2005 UKY-Zoster Vaccines (1 of 2) 07/05/2005 [id number] Vaccine (2 - season) 2023 05/05/2020 UKY-Influenza Vaccine (#1) 10/27/202411/19, 12/12/2016 UKY-RSV Vaccine: 60+ Years o r [...] age to complete this [place] [address]
--- OUTSIDE RECORDS SUMMARY | 2024-09-02 11:11 | XMS_ITS ---
Author Organization Unknown Medications Medication Instructions Effective Dates (start - stop) Status atorvastatin 80 MG Oral Tablet 2 360-50-63B75:00:00.000+00:00 - Completed lisinopril 5 MG Oral Tablet 2021:00:00.000+00:00 - Completed 24 HR metoprolol succinate 2 5 MG Extended Release Oral Tablet [id number]:00:00.000+0 0:00 - Completed alprazolam 0.25 MG Oral Tablet 2 958-52-85D79:00:00.000+00:00 - Completed atorvastatin 80 MG Oral Tablet 2 985-33-49X34:00:00.000+00:00 - Completed prasugrel 5 MG Oral Tablet :00:00.000+00:00 - Completed lisinopril 5 MG Oral Tablet 2021:00:00.000+00:00 - Completed 24 HR metoprolol succinate 2 5 MG Extended Release Oral Tablet 1953-56-13T76:00:00.000+0 0:00 - Completed atorvastatin 80 MG Oral Tablet 2 532-50-91Z99:00:00.000+00:00 - Completed alprazolam 0.25 MG Oral Tablet 2 824-68-31T87:00:00.000+00:00 - Completed 24 HR metoprolol succinate 2 5 MG Extended Release Oral Tablet 6782-10-85U08:00:00.000+0 0:00 - Completed prasugrel 5 MG Oral Tablet :00:00.000+00:00 - Completed alprazolam 0.25 MG Oral Tablet 2 668-27-18P26:00:00.000+00:00 - Completed lisinopril 5 MG Oral Tablet 2021:00:00.000+00:00 - Completed atorvastatin 80 MG Oral Tablet 2 900-43-27P42:00:00.000+00:00 - Completed 24 HR metoprolol succinate 2 5 MG Extended Release Oral Tablet 3913-32-76C99:00:00.000+0 0:00 - Completed 24 HR metoprolol succinate 2 5 MG Extended Release Oral Tablet 8503-99-42T88:00:00.000+0 0:00 - Completed lisinopril 5 MG Oral Tablet 2022:00:00.000+00:00 - Completed - 6333-63-88Y71:00 :00.000+00:00 - Completed alprazolam 0.25 MG Oral Tablet 2 763-75-09K36:00:00.000+00:00 - Completed alprazolam 0.25 MG Oral Tablet 2 [id number]:00:00.000+00:00 - Completed lisinopril 5 MG Oral Tablet 2022:00:00.000+00:00 - Completed prasugrel 5 MG Oral Tablet :00:00.000+00:00 - Completed alprazolam 0.25 MG Oral Tablet 2 620-59-79F92:00:00.000+00:00 - Completed prasugrel 5 MG Oral Tablet :00:00.000+00:00 - Completed alprazolam 0.25 MG Oral Tablet 2 451-36-01Y63:00:00.000+00:00 - Completed pantoprazole 40 MG Delayed Release Oral Tablet [id number]:00:00.000+00:0 0 - Completed pantoprazole 40 MG Delayed Release Oral Tablet [id number]:00:00.000+00:0 0 - Completed pantoprazole 40 MG Delayed Release Oral Tablet 2518-34-00V28:00:00.000+00:0 0 - Completed pantoprazole 40 MG Delayed Release Oral Tablet 6474-78-75M03:00:00.000+00:0 0 - Completed alprazolam 0.25 MG Oral Tablet 2 448-22-67Z33:00:00.000+00:00 - Completed Patient Care team information Name Category Status Period Participants - - Proposed period not known -
--- NOTE | 2024-09-02 11:30 | NM_ITS ---
APPROVED REPORT Exam: Nuclear Stress Test Indication: SOB, HTN, High cholesterol, Tobacco use, Family history, CAD, Hx of GA Patient Location: Outpatient Stress Tech: Gwen Andrew [place] Tech:Ann Ansari, ARRT, RT (R)(N) Ht: 5 ft 3 in Wt: 140 lbs HR: 59 bpm BP: 139/40 mmHg BSA: 1.66 m2 TID: 1.13 BMI: 24.7 History: SOB, HTN, High cholesterol, Tobacco use, Family history, CAD, Hx of GA Procedure: Patient exercised on protocol 6:51 minutes and sec, resting heart rate 59 bpm, resting blood pressure 139/40 mmHg, with exercise maximum heart rate achived was 151 bpm which is 100 % of the maximum predicted heart rate and blood pressure was 170/63 mmHg. Test was stopped due to SOB. Patient denied any complaint of chest pain. Patient has average exercise capacity, achieved 8.6 METs of workload on treadmill, the blood pressure response to exercise was normal . Cardiac Stress and Resting SPECT Images: Cardiac Stress and Resting SPECT images were obtained using technetium 99m Myoview 31.9 mCi stress and 10.48 mCi at rest. Resting and stress imaging in supine and prone positions demonstrate a large sized, moderate, predominantly fixed perfusion defect in the inferior, inferoseptal, and inferolateral LV masters. There is a region of reversibility towards the inferolateral LV wall. Gated imaging demonstrates mild reduction in global LV systolic function. There is moderate hypokinesis of the inferior LV wall. LVEF is calculated at 41%. Conclusion: Large sized, moderate, predominantly fixed perfusion defect in the inferior, inferoseptal, and inferolateral LV masters. There is a region of reversibility towards the inferolateral LV wall. Findings are suggestive of partial reversible ischemia. Gated imaging demonstrates mild reduction in global LV systolic function. There is moderate hypokinesis of the inferior LV wall. LVEF is calculated at 41%. Electronically signed by : Emely Laguerre MD 09/02/2024 23:17:11
[2024-09-02] MEDS: ISOTOPE MYOVIEW (PER STUDY) 1 DOSE IV (13:08)
[2024-09-02] MEDS: SODIUM CHLORIDE 0.9% 10ML SYR (RAD ONLY) 10 ML IV ×2 (13:08)
== END 2024-09-02 23:59 | disposition home or self-care (01) ==
LOC: RAD 11:09
PROVIDERS: PCP Nurse Practitioner Family; Visit Provider Nurse Practitioner
DX: I49.3 Ventricular premature depolarization (principal); R93.1 Abnormal findings on diagnostic imaging of heart and coronary circulation; I25.10 Atherosclerotic heart disease of native coronary artery without angina pectoris; I10 Essential (primary) hypertension; I25.2 Old myocardial infarction; E78.00 Pure hypercholesterolemia, unspecified; Z72.0 Tobacco use; R94.31 Abnormal electrocardiogram [ECG] [EKG]
CPT/HCPCS: 78452; 93016; 93017; 93018; A9502

== ENCOUNTER 2024-09-24 07:50 | Day surgery (SDC) | payer BC, SELFPAY ==
[2024-09-24] VITALS (7 sets, daily range): BP systolic 103–119; BP diastolic 46–71; PULSE 49–67; RESP 17–20; TEMP 36.6; O2SAT 93–97; BMI 23.8
--- NOTE | 2024-09-24 07:37 | IR_ITS ---
APPROVED REPORT Patient Location: Outpatient Embedded Systems Software Developer: WALT Casillas RT (R) PROCEDURES Left heart catheterization Left ventriculogram Selective coronary angiogram INDICATION Abnormal Myoview, Angina pectoris Informed consent was obtained prior to the procedure. COMPLICATIONS NONE Estimated Blood Loss: LESS THAN 10 ML TECHNIQUE One percent lidocaine used to anesthetize the right anterior aspect of the wrist. The right radial artery was accessed via the Seldinger technique. A 6 Pakistani sheath was placed in the right radial artery. 2.5 mg of Verapamil, 800 mcg of nitroglycerin, 1mg Lidocaine and 5000 U Heparin were given through the arterial sheath. The JL3 catheter was also used to perform left heart catheterization, left ventriculogram and selective coronary angiogram. At the end of the procedure the sheath was removed good hemostasis was achieved using Traclet band, patient was transferred to the postop holding area in stable condition. ANGIOGRAPHIC RESULTS The left main artery Has distal smooth concentric 20% stenosis The left anterior descending artery Proximal smooth 20% stenosis with mid vessel 30% stenosis The circumflex artery Codominant gives rise to a large ramus intermedius which has 10% luminal regularities with the circumflex artery itself has proximal and mid vessel 20 to 30% stenosis The right coronary artery Codominant has proximal 20% smooth stenosis mid vessel 20 to 30% smooth stenosis The RUIZ ventriculogram reveals Preserved at 55% The left ventricular end-diastolic pressure 10 mmHg IMPRESSION Mild diffuse nonflow limiting coronary disease Preserved ejection fraction Normal LVEDP PLAN 1. Medical management Electronically signed by : Zachariah Rowe MD 09/24/2024 10:44:40
[2024-09-24 08:29] LABS: Hematocrit 42.1 % (42.0-52.0); Hemoglobin 14.3 g/dL (14.1-18.0); Immature Granulocytes % 0.2 %; Mean Corpuscular HGB Conc 34.0 g/dL (31.8-35.4); Mean Corpuscular Hemoglobin 31.0 pg (27.0-31.2); Mean Corpuscular Volume 91.1 fl (80-94); Nucleated Red Blood Cells % 0 %; Platelet Count 297 K/mm3 (142-424); Red Blood Count 4.62 M/mm3 (4.60-6.20); Red Cell Distribution Width-SD 41.4 fL; White Blood Count 12.9 K/mm3 (4.8-10.8)
[2024-09-24 08:37] LABS: Anion Gap 9.3 mEq/L (5-15); Blood Urea Nitrogen 21 mg/dl (9-20); Calcium 10.2 mg/dl (8.4-10.2); Carbon Dioxide 26 mmol/L (22.0-30.0); Chloride 110 mmol/L (98-107); Creatinine Clearance Estimated 62 mL/min (50-200); Creatinine,Serum 0.90 mg/dl (0.66-1.25); Estimated Glomerular Filt Rate 84 ml/min (>60); GFR (African American) 101 ML/MIN (>60); Glucose 110 mg/dl (74-100); Potassium 4.3 mmoL/L (3.5-5.1); Sodium 141 mmol/L (136-145)
[2024-09-24] MEDS: HEPARIN 1,000 UNITS/500ML NS (CATH LAB) 3000 UNIT IV (10:14)
[2024-09-24] MEDS: HEPARIN 1,000 UNITS/ML 10ML VIAL (CATH LAB) 5000 UNIT IV (10:16)
[2024-09-24] MEDS: NITROGLYCERIN 800MCG/8ML SYR (CATH LAB) 800 MCG IA (10:16)
[2024-09-24] MEDS: LIDOCAINE 1% 10ML MDV 10 ML IJ (10:16)
[2024-09-24] MEDS: 0.9 % SODIUM CHLORIDE 500 ML 25 ML IV (10:16)
[2024-09-24] MEDS: VERAPAMIL 2.5MG/ML 2ML VIAL 2.5 MG IV (10:16)
[2024-09-24] MEDS: FENTANYL 100MCG/2ML VIAL 25 MCG IV (10:41)
[2024-09-24] MEDS: MIDAZOLAM HCL 1MG/ML 5ML VIAL 1 MG IV (10:41)
[2024-09-24] MEDS: IOPAMIDOL-370 (76%);100ML BOTTLE 50 ML IV (11:06)
== END 2024-09-24 14:00 | disposition home or self-care (01) ==
PROVIDERS: PCP Nurse Practitioner; Visit Provider Internal Medicine
PROC: 4A023N7 Measurement of Cardiac Sampling and Pressure, Left Heart, Percutaneous Approach (ICD-10-PCS; CPT 93452; principal; 2024-09-24 08:30)
DX: I25.119 Atherosclerotic heart disease of native coronary artery with unspecified angina pectoris (principal); R93.1 Abnormal findings on diagnostic imaging of heart and coronary circulation; R94.31 Abnormal electrocardiogram [ECG] [EKG]; Q21.10 Atrial septal defect, unspecified; R53.83 Other fatigue; I10 Essential (primary) hypertension; E78.2 Mixed hyperlipidemia; K21.9 Gastro-esophageal reflux disease without esophagitis; I44.7 Left bundle-branch block, unspecified; I08.1 Rheumatic disorders of both mitral and tricuspid valves; F17.210 Nicotine dependence, cigarettes, uncomplicated; Z79.899 Other long term (current) drug therapy; Z79.82 Long term (current) use of aspirin; Z79.02 Long term (current) use of antithrombotics/antiplatelets; Z88.0 Allergy status to penicillin
CPT/HCPCS: 80048; 85025; 93452; 93458; 99152; C1725; C1769; J1200; J1644; J2003; J3010; J7040; Q9967

== ENCOUNTER 2024-10-01 09:14 | Outpatient (CLI) | payer BC, SELFPAY ==
--- OUTSIDE RECORDS SUMMARY | 2024-10-01 09:17 | XMS_ITS | Encounter Summary ---
Author Organization [employer] ([place], [place], [place], [place]) Address [address] [place] [address] Care Team Providers Care Harpsichord Maker Name Role Phone Unavailable Primary Care Provider Unavailabl e Encounter Details Date Type Department Care Team (Late st Contact Info) Description 05/04/2020 Transcribed Document [facility] [place] Medicine [facility] [place] [address] ProviderParis MD [address], [place] [id number] Social History Tobacco Use Types Packs/Day Years Used Date Smoking Tobacco: Never Assessed Sex and Gender Information Value Date Recorded Sex Assigned at Not on file Legal Sex Male 4:23 PM CDT Gender Identity Not on file Sexual Orientation Not on file documented as of this encounter Miscellaneous Notes * Cerner Conversion Note - Paris ProviderMD - 05/04/2020 3:59 PM PERSONAL ASSISTANT DATE OF SERVICE: LEXISCAN MYOVIEW PERFUSION STUDY [...] normal left ventricular systolic function post stress. /[id number] Mason Mendoza MD SSL/AQ / SSL / MODL /[id number] CC: Dr. Eriberto Burnett Electronically signed by [facility], [facility] Conversion Inspector Metal Fabricating Cerner at 06/15/2022 2:37 PM CDT documented in this encounter Plan of Treatment Not on file documented as of this encounter Visit Diagnoses Not on filedocumented in this encounter
--- OUTSIDE RECORDS SUMMARY | 2024-10-01 09:17 | XMS_ITS | Encounter Summary ---
Author Organization [employer] ([place], [place], [place], [place]) Address [address] [place] [address] Care Team Providers Care Director Sales Name Role Phone Unavailable Primary Care Provider Unavailabl e Encounter Details Date Type Department Care Team (Late st Contact Info) Description 03/18/2018 Transcribed Document [facility] [place] [address] [place] [address] ProviderParis MD [address], [place] [id number] Social History Tobacco Use Types Packs/Day Years Used Date Smoking Tobacco: Never Assessed Sex and Gender Information Value Date Recorded Sex Assigned at Not on file Legal Sex Male 4:23 PM CDT Gender Identity Not on file Sexual Orientation Not on file documented as of this encounter Miscellaneous Notes * [employer]ner Conversion Note - Paris ProviderMD - 03/18/2018 5:52 PM TECHNICAL ASSISTANCE CONSULTANT DATE OF STUDY: LEXISCAN MYOVIEW PERFUSION STUDY [...] CC2: Dr. Eriberto Burnett Electronically signed by [facility], [facility] Conversion Community Midwife Cerner at 06/15/2022 2:24 PM CDT documented in this encounter Plan of Treatment Not on file documented as of this encounter Visit Diagnoses Not on filedocumented in this encounter
--- OUTSIDE RECORDS SUMMARY | 2024-10-01 09:17 | XMS_ITS | Clinical Summary ---
Author Organization [facility] Address [address] [place] [address] Care Team Providers Care Deputy K 9 Name Role Phone Unavailable Primary Care Provider [...] 07/05/2005 UKY-Zoster Vaccines (1 of 2) 07/05/2005 [id number] Vaccine (2 - season) 2023 05/05/2020 UKY-Influenza [...] age to complete this [place] [address]
--- OUTSIDE RECORDS SUMMARY | 2024-10-01 09:18 | XMS_ITS | Clinical Summary ---
Author Organization [employer] ([place], [place], [place], [place]) Address [address] [place] [address] Care Team Providers Care Manager Mining Name Role Phone Unavailable Primary Care Provider [...]
--- OUTSIDE RECORDS SUMMARY | 2024-10-01 09:18 | XMS_ITS | Referral Summary ---
Author Organization [employer] ([place], [place], [place], [place]) Address [address] [place] [address] Care Team Providers Care Tooth Clerk Name Role Phone Unavailable Primary Care Provider [...]
--- OUTSIDE RECORDS SUMMARY | 2024-10-01 09:18 | XMS_ITS | Clinical Summary ---
Author Organization [facility] Address [address] [place] [id number] Care Team Providers Care Business Support Liaison Name Role Phone Ellen Plaza APRN Primary Care Provider Allergies Active Allergy Reactions Criticality Noted Date Comments Penicillins Rash Low 12/03/2020 Medications ALPRAZolam (XANAX) 0.25 MG tablet TAKE 1 TABLET BY MOUTH THREE TIMES DAILY FOR 30 DAYS 11/26/2020 Active atorvastatin (LIPITOR) 80 MG tablet 12/01/2020 Active lisinopril (PRINIVIL,ZESTR IL) 5 MG tablet 10/01/2020 Act ike metoprolol succinate XL (TOPROL-XL) 25 MG 24 hr tablet Take 1 tablet by mouth Daily. 10/16/2020 Active pantoprazole (PROTONIX) 40 MG EC tablet Take 1 tablet by mouth Daily. 11/30/2020 Active prasugrel (EFFIENT) 5 MG tablet 10/01/2020 Active nitroglycerin (NITROSTAT) 0.[address] 1 tablet under the tongue Every 5 (Five) Minutes As Needed for Chest Pain. Take no more than 3 doses in 15 minutes. Active docusate sodium (COLACE) 100 MG capsule Take 1 capsule by mouth 2 (Two) Times a Day. Active MELATONIN PO Take by mouth. Active multivitamin (THERAGRAN) tablet tablet Take by mouth Daily. Active ASPIRIN 81 PO Take by mouth. Active Active Problems Problem Noted Date Diagnosed Date Surgery follow-up 2022 Status post left rotator cuff repair 03/02/2022 Work related injury 03/02/2022 Superior glenoid labrum lesion of left shoulder 06/09/2021 Post-traumatic stiffness of left shoulder joint 12/21/2020 Left shoulder pain 12/21/2020 Traumatic incomplete tear of left rotator cuff 1 Biceps tendinitis of left upper extremity 2020 Impingement syndrome of left shoulder 12/03/2020 Bursitis of left shoulder 12/03/2020 Family History Medical History Relation Name Comments Heart disease Brother Relation Name Status Comments Brother Social History Tobacco Use Types Packs/Day Years Used Date Smoking Tobacco: Every Day Cigarettes 0.8 51.6 Started: 1973 Smokeless Tobacco: Never Tobacco Cessation:Ready to Q uit: Not Asked; Counseling Given: Not Answered Alcohol Use Standard Drinks/Week Comments Never 0 (1 standard drink = 0.6 oz pur e alcohol) AUDIT-C Answer Date Recorded Q1: How often do you have a drink containing alc ohol? Never 12/03/2020 Average Number of Drinks Not on file 021 Frequency of Binge Drinking Not on file 09/2020 Abuse Screen Answer Date Recorded Unsafe at Home or Work/School Not on file Feels Threatened by Someone? Not on file Does Anyone Keep You from Co ntacting Others or Doint Things Outside the Home? Not on file 12/08/2022 Physical Sign of Abuse Present Not on file 1 Housing Stability Answer Date Recorded Current Living Arrangements Not on file 11/26 Potentially Unsafe Housing Conditions Not on william e 12/08/2022 Family and Community Support Answer Renaldo e Recorded Help with Day-to-Day Activities Not on file 12/08/2022 Lonely or Isolated Not on file 12/08/2022 Employment Answer Date Recorded Do you want help finding or keeping work or a yasmany b? Not on file 12/08/2022 Disabilities Answer Date Recorded Concentrating, Remembering, or Making Decisions Difficulty Not on file 12/08/2022 Doing Errands Independently Difficulty Not on fi le 12/08/2022 Education Answer Date Recorded Help with school or training? Not on file Preferred Language Not on file 12/08/2022 Sex and Gender Information Value Date Recorded Sex Assigned at Not on file Legal Sex Male 8:56 AM EDT Gender Identity Not on file Sexual Orientation Not on file Last Filed Vital Signs Vital Sign Reading Time Taken Comments Blood Pressure 130/60 10/03/2022 11:01 AM EDT Pulse 78 02/01/2021 11:17 AM EST Temperature 36.2 C (97.1 F) 01/12/2022 9:52 AM EST Respiratory Rate - - Oxygen Saturation - - Inhaled Oxygen Concentration - - Weight 62.6 kg (138 lb) 10/03/2022 11:01 AM EDT Height 165.1 cm (5' 5 ) 10/03/2022 11:01 AM EDT Body Mass Index 22.96 10/03/2022 11:01 AM EDT Plan of Treatment Health Maintenance Due Date Last Done Comments Pneumococcal Vaccine 50+ (1 of 2 - PCV) 07/05/1974 COLOGUARD 07/05/2000 COLON CANCER SCREENING 5 YEA R SIGMOIDOSCOPY 07/05/2000 COLONOSCOPY 07/05/2000 COLORECTAL CANCER SCREENING 07/05/2000 CT COLONOGRAPHY 07/05/2000 FECAL OCCULT BLOOD TEST 07/05/2000 FIT Testing (1 year) 07/05/2000 ZOSTER VACCINE (1 of 2) 07/05/2005 TDAP/TD VACCINES (2 - Tdap) 05/03/2006 05/03/1996 AAA SCREEN ONCE 07/05/2020 ANNUAL PHYSICAL 12/03/2020 HEPATITIS C SCREENING 12/03/2020 COVID-19 Vaccine (2 - season) 10/28/202311/2020 INFLUENZA VACCINE 11/26/2024 11/20/2019, 12/12/2016 Insurance Care Teams Business Support Liaison Relationship Specialty Start Date End Date Ellen Plaza APRN [address] [place] [address] PCP - General Nurse Practitioner 08/24/22
== END 2024-10-01 23:59 | disposition home or self-care (01) ==
LOC: LAB 09:15
PROVIDERS: PCP Nurse Practitioner; Visit Provider Nurse Practitioner
DX: I25.10 Atherosclerotic heart disease of native coronary artery without angina pectoris (principal); I42.8 Other cardiomyopathies; I10 Essential (primary) hypertension; R94.31 Abnormal electrocardiogram [ECG] [EKG]
CPT/HCPCS: 93270

== ENCOUNTER 2024-10-20 10:12 | Outpatient (CLI) | payer BC, SELFPAY ==
--- OUTSIDE RECORDS SUMMARY | 2024-10-20 10:46 | XMS_ITS | Clinical Summary ---
Author Organization [facility] Address [address] [place] [address] Care Team Providers Care Tax Adjuster Name Role Phone Unavailable Primary Care Provider [...] 07/05/2005 UKY-Zoster Vaccines (1 of 2) 07/05/2005 [id number] Vaccine (2 - season) 2023 05/05/2020 UKY-Influenza [...]
--- OUTSIDE RECORDS SUMMARY | 2024-10-20 10:46 | XMS_ITS | Clinical Summary ---
Author Organization [employer] ([place], [place], [place], [place]) Address [address] [place] [address] Care Team Providers Care Rfid Technician Name Role Phone Unavailable Primary Care [...]
--- OUTSIDE RECORDS SUMMARY | 2024-10-20 10:46 | XMS_ITS | Encounter Summary ---
Author Organization [employer] ([place], [place], [place]) Address [address] [place] [address] Care Team Providers Care Process Owner Name Role Phone Unavailable Primary Care Provider Unavailabl e Encounter Details Date Type Department Care Team (Late st Contact Info) Description 03/18/2018 Transcribed Document [facility] Family Medicine [address] [place] [address] ProviderParis MD [address] [id number] Social History Tobacco Use Types Packs/Day Years Used Date Smoking Tobacco: Never Assessed Sex and Gender Information Value Date Recorded Sex Assigned at Not on file Legal Sex Male 4:23 PM CDT Gender Identity Not on file Sexual Orientation Not on file documented as of this encounter Miscellaneous Notes * [employer] Conversion Note - Paris ProviderMD - 03/18/2018 5:52 PM SECONDARY ENGLISH TEACHER DATE OF STUDY: LEXISCAN MYOVIEW PERFUSION STUDY [...] CC2: Dr. Eriberto Burnett Electronically signed by [facility], [facility] Conversion Services Host Cerner at 06/15/2022 2:24 PM CDT documented in this encounter Plan of Treatment Not on file documented as of this encounter Visit Diagnoses Not on filedocumented in this encounter
--- OUTSIDE RECORDS SUMMARY | 2024-10-20 10:46 | XMS_ITS | Clinical Summary ---
Author Organization [facility] Address [address] [place] [id number] Care Team Providers Care Leather Coverer Name Role Phone Ellen Plaza APRN Primary [...] VACCINE 11/26/2024 11/20/2019, 12/12/2016 Insurance Care Teams Leather Coverer Relationship Specialty Start Date End Date Ellen Plaza APRN [address] [place] [address] PCP - General Nurse Practitioner 08/24/22
--- OUTSIDE RECORDS SUMMARY | 2024-10-20 10:46 | XMS_ITS | Encounter Summary ---
Author Organization [employer] ([place], [place], [place], [place]) Address [address] [place] [address] Care Team Providers Care Order Clerk Name Role Phone Unavailable Primary Care Provider Unavailabl e Encounter Details Date Type Department Care Team (Late st Contact Info) Description 05/04/2020 Transcribed Document [facility] Family [facility] [place] [address] ProviderParis MD [address] [id number] Social History Tobacco Use Types Packs/Day Years Used Date Smoking Tobacco: Never Assessed Sex and Gender Information Value Date Recorded Sex Assigned at Not on file Legal Sex Male 4:23 PM CDT Gender Identity Not on file Sexual Orientation Not on file documented as of this encounter Miscellaneous Notes * [employer]ner Conversion Note - Paris ProviderMD - 05/04/2020 3:59 PM ARMATURE WINDER REPAIRER DATE OF SERVICE: LEXISCAN MYOVIEW PERFUSION STUDY [...] normal left ventricular systolic function post stress. /[id number] Mason Mendoza MD SSL/AQ / SSL / MODL /[id number] CC: Dr. Eriberto Burnett Electronically signed by [facility], [facility] Conversion Ordnance Truck Installation Mechanic Cerner at 06/15/2022 2:37 PM CDT documented in this encounter Plan of Treatment Not on file documented as of this encounter Visit Diagnoses Not on filedocumented in this encounter
--- OUTSIDE RECORDS SUMMARY | 2024-10-20 10:46 | XMS_ITS | Referral Summary ---
Author Organization [employer] ([place], [place], [place], [place]) Address [address] [place] [address] Care Team Providers Care Telescope Operator Name Role Phone Unavailable Primary Care [...]
[2024-10-20] MEDS: GADOTERIDOL INJ 20ML SYRINGE 14 ML IV (11:43)
[2024-10-20] MEDS: 0.9 % SODIUM CHLORIDE 50 ML VIAL IV (11:43)
[2024-10-20] MEDS: SODIUM CHLORIDE 0.9% 10ML SYR (RAD ONLY) 10 ML IV (11:43)
== END 2024-10-20 23:59 | disposition home or self-care (01) ==
LOC: RAD 10:12
PROVIDERS: PCP Nurse Practitioner; Visit Provider Nurse Practitioner
DX: I42.9 Cardiomyopathy, unspecified (principal)
CPT/HCPCS: 75561; A9576

== ENCOUNTER 2025-01-01 10:59 | Emergency (ER) | payer BC, SELFPAY ==
[2025-01-01 11:00] VITALS: BP 174/63; PULSE 66; RESP 18; TEMP 36.7; O2SAT 96; BMI 23.6
--- NOTE | 2025-01-01 11:03 | ECG_ITS ---
APPROVED REPORT Exam: Resting ECG HR:67 bpm ECG Measurements Heart Rate 67 AXES WI 172 P 78 QRSd 135 QRS 59 QT 405 T -73 QTc 420 Conclusion SINUS RHYTHM WITH OCCASIONAL SUPRAVENTRICULAR PREMATURE COMPLEXES LEFT BUNDLE BRANCH BLOCK [120+ ms QRS DURATION, 80+ ms Q/S IN V1/V2, 85+ ms R IN I/aVL/V5/V6] ABNORMAL ECG Electronically signed by : SOCORRO MCINTYRE, 01/05/2025 07:31:15
[2025-01-01 11:04] VITALS: BP 174/63; PULSE 72; O2SAT 97
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
--- NOTE | 2025-01-01 11:07 | XR_ITS ---
FINAL REPORT CLINICAL HISTORY: SOA and CP COMPARISON: 05/04/2024 FINDINGS: A portable view of the chest was obtained. Cardiac and mediastinal silhouettes are within normal limits. The lungs are clear. There is no pleural effusion or pneumothorax. IMPRESSION: No acute process on this portable exam. Reviewed, Interpreted and Dictated by Cami Ramon MD Transcribed by Hayley Young Authenticated and [facility]
--- OUTSIDE RECORDS SUMMARY | 2025-01-01 11:12 | XMS_ITS | Clinical Summary ---
Author Organization [facility] Address [address] [place] [phone] Care Team Providers Care Filer Metal Patterns Name Role Phone Ellen Plaza APRN Primary [...] Date Smoking Tobacco: Every Day Cigarettes 0.8 51.8 Started: 1973 Smokeless Tobacco: Never Tobacco Cessation:Ready [...] TDAP/TD VACCINES (2 - Tdap) 05/03/2006 05/03/1996 COVID-19 Vaccine (2 - Rylee risk series) 06/02/2020 05/05/2020 AAA SCREEN ONCE 07/05/2020 ANNUAL PHYSICAL 12/03/2020 HEPATITIS C SCREENING 12/03/2020 INFLUENZA VACCINE 09/26/2024 11/20/2019, 12/12/[address] [place] [place] [id number] Care Teams Filer Metal Patterns Relationship Specialty Start Date End Date Ellen Plaza APRN [address] [place] [address] PCP - General Nurse Practitioner 08/24/22
--- OUTSIDE RECORDS SUMMARY | 2025-01-01 11:12 | XMS_ITS | Clinical Summary ---
Author Organization [facility] Address [address] [place] [address] Care Team Providers Care Rn Clinical Appeals Name Role Phone Unavailable Primary Care Provider [...] 07/05/2005 [facility]-Zoster Vaccines (1 of 2) 07/05/2005 [id number] Vaccine (2 - season) 2024 05/05/2020 [facility]-Influenza Vaccine (#1) 10/27/202411/19, 12/12/2016 [facility]-RSV [...] age to complete this [place] [id number]
--- NOTE | 2025-01-01 11:17 | PC.NURSE ---
portable XR at BS
[2025-01-01 11:31] VITALS: BP 150/64; PULSE 56; O2SAT 95
[2025-01-01] MEDS: ASPIRIN 81MG CHEWABLE TABLET 324 MG PO (11:42)
[2025-01-01 11:43] LABS: Hematocrit 44.3 % (42.0-52.0); Hemoglobin 14.5 g/dL (14.1-18.0); Immature Granulocytes % 0.2 %; Mean Corpuscular HGB Conc 32.7 g/dL (31.8-35.4); Mean Corpuscular Hemoglobin 30.3 pg (27.0-31.2); Mean Corpuscular Volume 92.7 fl (80-94); Nucleated Red Blood Cells % 0 %; Platelet Count 273 K/mm3 (142-424); Red Blood Count 4.78 M/mm3 (4.60-6.20); Red Cell Distribution Width-SD 44.7 fL; White Blood Count 10.7 K/mm3 (4.8-10.8)
[2025-01-01 11:52] LABS: Albumin Level 4.5 g/dl (3.5-5.0)
[2025-01-01 11:53] LABS: Chloride 107 mmol/L (98-107); Potassium 4.2 mmoL/L (3.5-5.1); Sodium 141 mmol/L (136-145)
[2025-01-01 11:55] LABS: Alanine Aminotransferase 40 U/L (12-78); Anion Gap 9.2 mEq/L (5-15); Aspartate Amino Transferase 43 U/L (17-59); Blood Urea Nitrogen 17 mg/dl (9-20); Carbon Dioxide 29 mmol/L (22.0-30.0); Creatinine Clearance Estimated 62 mL/min (50-200); Creatinine,Serum 0.90 mg/dl (0.66-1.25); Estimated Glomerular Filt Rate 84 ml/min (>60); GFR (African American) 101 ML/MIN (>60)
[2025-01-01 11:56] LABS: Albumin/Globulin Ratio 2.4 (1.1-1.8); Alkaline Phosphatase 91 U/L (38-126); Bilirubin,Total 0.6 mg/dl (0.2-1.3); Calcium 9.3 mg/dl (8.4-10.2); Globulin 1.9 g/dL (1.3-3.2); Glucose 134 mg/dl (74-100); Lipase 88 U/L (23-300); Magnesium 1.7 mg/dl (1.6-2.3); Total Protein,Serum 6.4 g/dl (6.3-8.2)
[2025-01-01 12:01] VITALS: BP 135/61; PULSE 51; RESP 17; O2SAT 95
[2025-01-01 12:01] LABS: INR 1.02 (0.9-1.1); Prothrombin Time 11.3 seconds (10.1-12.5)
[2025-01-01 12:05] LABS: NT Pro Brain Natriuretic Pep. 124 pg/mL (0-125)
[2025-01-01 12:11] LABS: Troponin I < 0.01 ng/ml (0.00-0.034)
[2025-01-01 12:25] LABS: D-Dimer 0.78 ug/mL (0.0-0.5)
--- NOTE | 2025-01-01 12:39 | ECG_ITS ---
APPROVED REPORT Exam: Resting ECG HR:42 bpm ECG Measurements Heart Rate 42 AXES VT 173 P 73 QRSd 146 QRS 59 QT 485 T -42 QTc 425 Conclusion SINUS BRADYCARDIA LEFT BUNDLE BRANCH BLOCK [120+ ms QRS DURATION, 80+ ms Q/S IN V1/V2, 85+ ms R IN I/aVL/V5/V6] ABNORMAL ECG UNCONFIRMED REPORT Electronically signed by : SHARON ANAND, 01/04/2025 02:21:42
--- NOTE | 2025-01-01 12:45 | PC.NURSE ---
Repeat EKG completed at 1239
--- NOTE | 2025-01-01 12:45 | PC.NURSE ---
pt given a sprite per request; okayd by SANDRA Patel
[2025-01-01 13:02] VITALS: BP 127/60; PULSE 46; RESP 16; TEMP 36.7; O2SAT 98
== END 2025-01-01 13:12 | disposition home or self-care (01) ==
PROVIDERS: Physician Assistant; Emergency Provider Student in an Organized Health Care Education/Training Program; PCP Nurse Practitioner
DX: R07.89 Other chest pain (principal); I44.7 Left bundle-branch block, unspecified; K21.9 Gastro-esophageal reflux disease without esophagitis; F17.210 Nicotine dependence, cigarettes, uncomplicated; I10 Essential (primary) hypertension; E78.5 Hyperlipidemia, unspecified
CPT/HCPCS: 71045; 80053; 83690; 83735; 83880; 84484; 85025; 85378; 85610; 93005; 99284